=== PATIENT | male | born 1955 | race Hispanic/Latino ===

== ENCOUNTER 2016-03-16 05:42 | Inpatient (IN) | payer MEDICAID, MEDICARE ==
[2016-03-16] MEDS ORDERED: TYLENOL PO ONE ×2 (06:17→06:18)
[2016-03-16 06:50] LABS: Basophils % (Auto) 0.6 % (0.0-1.8); Hemoglobin 11.7 gm/dl (11.8-15.2); Mean Corpuscular HGB Conc 34 % (32-34); Mean Corpuscular Hemoglobin 27 pg (28-32); Mean Corpuscular Volume 79 fl (84-94); Platelet Count 195 K/mm3 (140-440); Red Blood Count 4.42 M/mm3 (3.65-5.03); Red Cell Distribution Width 14.5 % (13.2-15.2); White Blood Count 10.3 K/mm3 (4.5-11.0)
--- NOTE | 2016-03-16 06:57 | Emergency Department Report ---
HPI - General Chief Complaint: Adult Asthma Time Seen by Provider: 03/16/16 06:51 ED Past Medical Hx - Past Medical History Previous Medical History?: Yes Hx Hypertension: Yes Hx CVA: Yes (right sided weakness) Hx Heart Attack/AMI: Yes (5 stents) Hx Diabetes: Yes Hx Psychiatric Treatment: Yes (anxiety) Hx Asthma: No - Surgical History Past Surgical History?: Yes Additional Surgical History: right elbow / knee / 5 heart stents - Social History Smoking Status: Current Every Day Smoker Substance Use Type: Alcohol, Prescribed - Medications Home Medications: Home Medications Medication Instructions Recorded Confirmed Last Taken Type Clopidogrel Bisulfate [Plavix] 75 mg PO DAILY 03/11/14 03/11/14 03/10/14 History 1 Insulin NPH Hum/Reg Insulin Hm 20 unit SQ AMHY 03/11/14 03/11/14 03/10/14 History [HumuLIN 70-30 Vial] 1 Metoprolol [Lopressor TAB] 50 mg PO DAILY 03/11/14 03/11/14 03/10/14 History 1 Pantoprazole [Protonix] 40 mg PO QDAY #20 tablet. 03/11/14 Unknown Rx metFORMIN XR [Glucophage XR] 1,000 mg PO BID 03/11/14 03/11/14 03/10/14 History 1 ED Review of Systems ROS: Stated complaint: HARSHA Other details as noted in HPI Physical Exam - Physical Exam Vital Signs: Vital Signs 03/16/16 03/16/16 03/16/16 05:54 06:22 06:26 Temperature 103.1 F H Pulse Rate 123 H Respiratory 35 H 30 H 30 H Rate Blood Pressure 179/94 Blood Pressure 179/94 [Left] O2 Sat by Pulse 94 96 Oximetry ED Course Vital Signs 03/16/16 03/16/16 03/16/16 05:54 06:22 06:26 Temperature 103.1 F H Pulse Rate 123 H Respiratory 35 H 30 H 30 H Rate Blood Pressure 179/94 Blood Pressure 179/94 [Left] O2 Sat by Pulse 94 96 Oximetry ED Medical Decision Making - Lab Data Result diagrams: 03/16/16 06:32 Critical care attestation.: If time is entered above; I have spent that time in minutes in the direct care of this critically ill patient, excluding procedure time. ED Disposition Condition: Stable
[2016-03-16 07:00] LABS: BUN/Creatinine Ratio 9.47; Chloride 100.9 mmol/L (98-107); Potassium 3.7 mmol/L (3.6-5.0)
[2016-03-16] MEDS ORDERED: PROVENTIL IH ONE (07:00)
[2016-03-16] MEDS ORDERED: LASIX IV ONE (07:00)
[2016-03-16] MEDS ORDERED: ATROVENT IH ONE (07:01)
[2016-03-16] MEDS ORDERED: ROCEPHIN/NS 1 GM/50 ML 50 ML IV ONE (07:02)
--- NOTE | 2016-03-16 07:11 | Emergency Department Report ---
HPI - General Chief Complaint: Dyspnea/Respdistress Time Seen by Provider: 03/16/16 06:51 - HPI HPI: Chief complaint: Shortness of breath, fever, cough and weakness HPI: Patient is a 61-year-old male with a history of coronary artery disease, hypertension, diabetes, stroke status post cardiac stent who woke this morning with a dry cough, fever and generalized malaise. Patient states he does not get a flu shot and does not know that he's been around anyone with the flu. Patient denies history of congestive heart failure but states his feet and been swollen for the last week. Mode of arrival: [EMS] Source: [Patient] [old chart] Began: On awakening this morning Duration: Today Context: See above Quality: Patient denies chest pain Severity: 0 out of 10 Improved with: Nothing Worsened with: Nothing Associated signs and symptoms: No nausea vomiting or diarrhea. ED Past Medical Hx - Past Medical History Previous Medical History?: Yes Hx Hypertension: Yes Hx CVA: Yes (right sided weakness) Hx Heart Attack/AMI: Yes (5 stents) Hx Diabetes: Yes Hx GERD: Yes Hx Psychiatric Treatment: Yes (anxiety) Hx Asthma: No - Surgical History Past Surgical History?: Yes Additional Surgical History: right elbow / knee / 5 heart stents - Social History Smoking Status: Current Every Day Smoker Substance Use Type: Alcohol, Prescribed - Medications Home Medications: Home Medications Medication Instructions Recorded Confirmed Last Taken Type Clopidogrel Bisulfate [Plavix] 75 mg PO DAILY 03/11/14 03/11/14 03/10/14 History 1 Insulin NPH Hum/Reg Insulin Hm 20 unit SQ AMHY 03/11/14 03/11/14 03/10/14 History [HumuLIN 70-30 Vial] 1 Metoprolol [Lopressor TAB] 50 mg PO DAILY 03/11/14 03/11/14 03/10/14 History 1 Pantoprazole [Protonix] 40 mg PO QDAY #20 tablet. 03/11/14 Unknown Rx metFORMIN XR [Glucophage XR] 1,000 mg PO BID 03/11/14 03/11/14 03/10/14 History 1 ED Review of Systems ROS: Stated complaint: HARSHA Other details as noted in HPI ROS Constitutional: fever ENT: No uri symptoms Cardiovascular: No chest pain Respiratory: See HPI GI: No nausea vomiting or diarrhea : No dysuria frequency or urgency, Skin: No rash Neuro: Mild Right hemiparesis Psych: No depression Delfino/lymph: One set pedal edema Physical Exam - Physical Exam Vital Signs: Vital Signs 03/16/16 03/16/16 03/16/16 05:46 05:54 06:00 Temperature 103.1 F H Pulse Rate 123 H 123 H 121 H Respiratory 28 H 35 H 38 H Rate Blood Pressure 179/94 172/92 Blood Pressure 179/94 [Left] O2 Sat by Pulse 94 94 94 Oximetry 03/16/16 03/16/16 06:22 06:26 Temperature Pulse Rate Respiratory 30 H 30 H Rate Blood Pressure Blood Pressure [Left] O2 Sat by Pulse 96 Oximetry Physical Exam: GENERAL: The patient is well-developed well-nourished . Patient is sleepy and falls asleep intermittently during the exam and has to be reawakened. HEENT: Normocephalic. Atraumatic. Extraocular motions are intact. Patient has moist mucous membranes. NECK: Supple. No meningitic signs are noted. There is no adenopathy noted. CHEST/LUNGS: Bibasilar wheezing and Rales. There is no respiratory distress noted. HEART/CARDIOVASCULAR: Regular. There is tachycardia. There is no gallop rub or murmur. ABDOMEN: Abdomen is soft, nontender. Patient has normal bowel sounds. There is no abdominal distention. SKIN: There is no rash. There is no edema. There is no diaphoresis. NEURO: The patient is sleepy but easily awakened and oriented. The patient is cooperative. The patient has normal speech. MUSCULOSKELETAL: There is no tenderness or deformity. There is no limitation range of motion. There is no evidence of acute injury. ED Course Vital Signs 03/16/16 03/16/16 03/16/16 05:46 05:54 06:00 Temperature 103.1 F H Pulse Rate 123 H 123 H 121 H Respiratory 28 H 35 H 38 H Rate Blood Pressure 179/94 172/92 Blood Pressure 179/94 [Left] O2 Sat by Pulse 94 94 94 Oximetry 03/16/16 03/16/16 06:22 06:26 Temperature Pulse Rate Respiratory 30 H 30 H Rate Blood Pressure Blood Pressure [Left] O2 Sat by Pulse 96 Oximetry - Reevaluation(s) Reevaluation #1: 03/16/16 07:12 Patient given Tylenol, Lasix 20 mg IV, nebulizer treatment and 1 g of IV Rocephin. Chest x-ray shows increased pulmonary vasculature and no definite infiltrate is noted. Patient will be admitted to rule out new onset heart failure. ED Medical Decision Making - Lab Data Result diagrams: 03/16/16 06:32 03/16/16 06:32 - EKG Data -: EKG Interpreted by Me EKG shows normal: sinus rhythm Rate: tachycardia (122) - EKG Data When compared to previous EKG there are: previous EKG unavailable Interpretation: other (left anterior fascicular block) Critical care attestation.: If time is entered above; I have spent that time in minutes in the direct care of this critically ill patient, excluding procedure time. ED Disposition Clinical Impression: Congestive heart failure, Fever, Reactive airway disease, Renal insufficiency Disposition: OP ADMITTED IP TO THIS HOSP Is pt being admited?: Yes Does the pt Need Aspirin: Yes Condition: Fair Time of Disposition: 07:48 (admit to the hospitalist)
[2016-03-16] MEDS ORDERED: D50W (25GM) IV PRN (07:34)
[2016-03-16] MEDS ORDERED: DULCOLAX PR PRN (07:34)
--- NOTE | 2016-03-16 07:34 | History and Physical Report ---
History of Present Illness Chief complaint: fever History of present illness: 61 w pmh of htn, dm, cva, cad sp stent who presents with one day of dry cough, fever, malaise. Denies sick contacts, feels very poorly, feels very weak. Denies sick contacts, also complaining of bipedal edema x 1 week, denies hx of CHF. Did not take flu shot this year Past History Past Medical History: acute AL, CAD, diabetes, hypertension. denies: heart failure, renal failure Past Surgical History: Other (R elbow surgery, knee sx, 5 stents) Social history: smoking (current every day) Family history: no significant family history Medications and Allergies Allergies Allergy/AdvReac Type Severity Reaction Status Date / Time Penicillins Allergy Unknown Verified 03/11/14 04:53 Home Medications Medication Instructions Recorded Confirmed Last Taken Type Clopidogrel Bisulfate [Plavix] 75 mg PO DAILY 03/11/14 03/16/16 03/10/14 History 1 Insulin NPH Hum/Reg Insulin Hm 20 unit SQ AMHY 03/11/14 03/16/16 03/10/14 History [HumuLIN 70-30 Vial] 1 Metoprolol [Lopressor TAB] 50 mg PO DAILY 03/11/14 03/16/16 03/10/14 History 1 Pantoprazole [Protonix] 40 mg PO QDAY #20 tablet. 03/11/14 03/16/16 Unknown Rx metFORMIN XR [Glucophage XR] 1,000 mg PO BID 03/11/14 03/16/16 03/10/14 History 1 Active Meds: Active Medications Ceftriaxone Sodium (Rocephin/Ns 1 Gm/50 Ml) 50 mls @ 100 mls/hr IV ONCE ONE Stop: 03/16/16 07:31 Last Admin: 03/16/16 07:24 Dose: 100 mls/hr Review of Systems All systems: negative Constitutional: fever, malaise, other (body aches) Cardiovascular: leg edema Respiratory: cough Exam - Constitutional Vitals: Temp Pulse Resp BP Pulse Ox 103.1 F H 121 H 30 H 172/92 96 03/16/16 05:54 03/16/16 06:00 03/16/16 06:26 03/16/16 06:00 03/16/16 06:26 General appearance: Present: other (toxic appearance) - EENT Eyes: Present: PERRL ENT: hearing intact, clear oral mucosa - Neck Neck: Present: supple, normal ROM - Respiratory Respiratory effort: normal Respiratory: bilateral: CTA - Cardiovascular Heart Sounds: Present: S1 & S2. Absent: rub, click - Extremities Extremities: pulses symmetrical, No edema Peripheral Pulses: within normal limits - Abdominal General gastrointestinal: Present: soft, non-tender, non-distended, normal bowel sounds Male genitourinary: Present: normal - Integumentary Integumentary: Present: clear, warm, dry - Musculoskeletal Musculoskeletal: gait normal, strength equal bilaterally - Psychiatric Psychiatric: appropriate mood/affect, intact judgment & insight - Neurologic Neurologic: CNII-XII intact, moves all extremities Results - Labs CBC & Chem 7: 03/16/16 06:32 03/16/16 06:32 Labs: Laboratory Last Values WBC 10.3 K/mm3 (4.5-11.0) 03/16/16 06:32 RBC 4.42 M/mm3 (3.65-5.03) 03/16/16 06:32 Hgb 11.7 gm/dl (11.8-15.2) L 03/16/16 06:32 Hct 35.0 % (35.5-45.6) L 03/16/16 06:32 MCV 79 fl (84-94) L 03/16/16 06:32 MCH 27 pg (28-32) L 03/16/16 06:32 MCHC 34 % (32-34) 03/16/16 06:32 RDW 14.5 % (13.2-15.2) 03/16/16 06:32 Plt Count 195 K/mm3 (140-440) 03/16/16 06:32 Lymph % (Auto) 5.4 % (13.4-35.0) L 03/16/16 06:32 [place] % (Auto) 6.1 % (0.0-7.3) 03/16/16 06:32 Eos % (Auto) 1.0 % (0.0-4.3) 03/16/16 06:32 Baso % (Auto) 0.6 % (0.0-1.8) 03/16/16 06:32 Lymph # 0.6 K/mm3 (1.2-5.4) L 03/16/16 06:32 [place] # 0.6 K/mm3 (0.0-0.8) 03/16/16 06:32 Eos # 0.1 K/mm3 (0.0-0.4) 03/16/16 06:32 Baso # 0.1 K/mm3 (0.0-0.1) 03/16/16 06:32 Seg Neutrophils % 86.9 % (40.0-70.0) H 03/16/16 06:32 Seg Neutrophils # 8.9 K/mm3 (1.8-7.7) H 03/16/16 06:32 Sodium 137 mmol/L (137-145) 03/16/16 06:32 Potassium 3.7 mmol/L (3.6-5.0) 03/16/16 06:32 Chloride 100.9 mmol/L (98-107) 03/16/16 06:32 Carbon Dioxide 21 mmol/L (22-30) L 03/16/16 06:32 Anion Gap 19 mmol/L 03/16/16 06:32 BUN 18 mg/dL (9-20) 03/16/16 06:32 Creatinine 1.9 mg/dL (0.8-1.5) H 03/16/16 06:32 Estimated GFR 36 ml/min 03/16/16 06:32 BUN/Creatinine Ratio 9.47 % 03/16/16 06:32 Glucose 218 mg/dL (75-100) H 03/16/16 06:32 Calcium 8.0 mg/dL (8.4-10.2) L 03/16/16 06:32 NT-Pro-B Natriuret Pep 2313 pg/mL (0-900) H 03/16/16 06:32 - Imaging and Cardiology Chest x-ray: image reviewed (no infiltrate seen) Assessment and Plan Assessment and plan: 1. Presumptive Influenza infection fup flu testing start tamiflu, IVF, supportive meds, cough suppresant prn 2. CAD continue home meds 3. Nicotine abuse counseled, nicotine patches offered 4. Bipedal edema -obtain echo, and Duplex venous study to r/o CHF vs venous stasis 5. UCHE-likely due to vasomotor nephropathy -IVfluids judiciously, avoid nephrotoxic agents 6. HTN-accelerated resume home meds and prn hydralazine Plan of care discussed with patient/family: Yes
[2016-03-16 07:35] LABS: Creatine Kinase 125 units/L (55-170)
[2016-03-16 07:39] LABS: Creatine Kinase MB < 1.0 ng/mL (0.0-4.0)
[2016-03-16] MEDS ORDERED: APRESOLINE IV PRN (07:39)
[2016-03-16] MEDS ORDERED: ASPIRIN PO ONE (07:55)
[2016-03-16] MEDS ORDERED: NACL 0.9% 1000 ML 1,000 ML IV SCH (08:00)
[2016-03-16] MEDS ORDERED: ZOFRAN IV PRN (08:00)
[2016-03-16] MEDS ORDERED: MILK OF MAGNESIA PO PRN (08:00)
[2016-03-16 09:00] LABS: Urine Drugs of Abuse Note Disclamer
[2016-03-16] MEDS ORDERED: ROBITUSSIN AC PO PRN (09:00)
[2016-03-16 09:46] LABS: Bilirubin,Urine NEG (Negative); Blood,Urine SM (Negative); Ketones,Urine NEG (Negative); Leukocyte Esterase,Urine NEG (Negative); Mucus,Urine FEW /HPF; Nitrite,Urine NEG (Negative); Urobilinogen,Urine < 2.0 mg/dL (<2.0)
[2016-03-16 09:48] LABS: Protein,Urine >500 mg/dL (Negative)
--- NOTE | 2016-03-16 09:58 | XRay Report ---
AP CHEST :03/16/16 05:42:00 CLINICAL: Difficulty breathing. COMPARISON:None. FINDINGS: The heart is normal size. However, central vascular congestion and extensive bilateral reticular interstitial opacities suggestive of multilobar pulmonary edema.No pulmonary consolidation. No tubes or lines. IMPRESSION: CHF with interstitial pulmonary edema versus multilobar interstitial pneumonia..
[2016-03-16] MEDS ORDERED: PROTONIX PO SCH (10:00)
[2016-03-16] MEDS ORDERED: ASPIRIN ONE (10:31)
[2016-03-16] MEDS: PLAVIX PO SCH (10:40)
[2016-03-16] MEDS: PROTONIX PO SCH (10:42)
[2016-03-16] MEDS: LOVENOX SUB-Q SCH (10:45)
[2016-03-16] MEDS: HABITROL TD SCH (10:59)
[2016-03-16] MEDS: LOPRESSOR PO SCH (10:59)
[2016-03-16] MEDS: NOVOLOG SUB-Q SCH ×2 (12:00→17:46)
[2016-03-16] MEDS: TYLENOL PO PRN (18:15)
[2016-03-16] MEDS ORDERED: XANAX PO PRN (23:46)
[2016-03-17] MEDS: XANAX PO PRN ×3 (00:32→21:30)
[2016-03-17] MEDS: TYLENOL PO PRN ×2 (05:03→11:17)
[2016-03-17] MEDS: TESSALON PERLES PO SCH ×3 (05:03→21:31)
[2016-03-17] MEDS: NOVOLOG SUB-Q SCH ×3 (08:15→17:42)
[2016-03-17 08:19] LABS: Calcium 7.5 mg/dL (8.4-10.2); Chloride 99.5 mmol/L (98-107); Potassium 3.3 mmol/L (3.6-5.0)
--- NOTE | 2016-03-17 09:16 | Progress Note ---
Assessment and Plan Assessment and plan: 61 w pmh of htn, dm, cva, cad sp stent who presents with one day of dry cough, fever, malaise. Denies sick contacts, feels very poorly, feels very weak. Denies sick contacts, also complaining of bipedal edema x 1 week, denies hx of CHF. Did not take flu shot this year. Patient is poor historian and unable to give any information about his health. * Acute CHF Exacerbation probably systolic * Patient states that he has a hx of CHF but dose not what type, was recently at [facility], will request records * No edema on my exam, patient supine with no shortness of breath except for cough * Consult cardiology, restart lasix but PO will obtain Nephrology consultation in the setting of UCHE * Await Echo report * Acute Kidney Injury possible due to Vasomotor Nephropathy * patient states that he is suppose to follow with nephrology, unsure what the baseline is. await requested records * Consult Nephrology * Check US renal, Avoid nephrotoxic meds * Sepsis r/o Pneumonia vs acute bronchitis * Unsure if superimposed pneumonia. Patient with Tmax 102.5 * Start Levaquin, as patient has allergy to PCN. check lactic acid. Bcx reviewed, no growth * D/C tamiflu * Cough * non productive. * Causing chest pain- musculoskeltal * Musculoskeletal chest pain * related to the cough, await cardiology input * Hypertensive Urgency * continue BB, Hydralazine, NO ACEI/ARB due to renal function * Anticipate improvement with addition of lasix, otherwise may add other agents * Sinus tachycardia * Likely secondary to cough on underline and infectious process. * Metabolic Acidosis * likely due to renal function abnormality * Hypokalemia likely due to renal dysfunction * replace * DM * controlled, continue current therapy * Nicotine abuse * Counselling provided on quit methods and risk of continued use, patient verablized understanding * Bilateral pedal edema * await u/s lower ext * CAD * continue asa, home meds * BPH * Patient state he has some prostrate problems in the past, and has been on abx but again unsure of his hx. * DVT and GI prophylaxis The high probability of a clinically significant, sudden or life threatening deterioration of the [cardiac, infectious, pulmonary] system(s) required my full and direct attention, intervention and personal management. The aggregate critical care time was [45] minutes. This time is in addition to time spent performing reported procedures but includes the following: [x] Data Review and interpretation [x] Patient assessment and monitoring of vital signs [x] Documentation [x] Medication orders and management History Interval history: Follow-up cough with shortness of breath Patient seen and examined this morning in no acute distress, reports fever and persistent nonproductive cough also chest wall pain. Rates the pain at 3/10 in intensity only associated with cough no radiation Denies any nausea, vomiting, diarrhea No fever noted blood pressure controlled No adverse events reported to me by nursing staff Hospitalist Physical - Physical exam Narrative exam: VITAL SIGNS: Reviewed. GENERAL: The patient appeared well nourished and normally developed. Vital signs as documented. HEAD: No signs of head trauma. EYES: Pupils are equal. Extraocular motions intact. EARS: Hearing grossly intact. MOUTH: Oropharynx is normal. NECK: No adenopathy, no JVD. CHEST: Chest with crackles breath sounds bilaterally. No wheezes. CARDIAC: Regular rate and rhythm. S1 and S2, without murmurs, gallops, or rubs. VASCULAR: No Edema. Peripheral pulses normal and equal in all extremities. ABDOMEN: Soft, without detectable tenderness. No sign of distention. No rebound or guarding, and no masses palpated. Bowel Sounds normal. MUSCULOSKELETAL: Good range of motion of all major joints. Extremities without clubbing, cyanosis or edema. NEUROLOGIC EXAM: Alert and oriented x 3. No focal sensory or strength deficits. Speech normal. Follows commands. PSYCHIATRIC: Mood normal. SKIN: Warm to touch, No rash or lesions. - Constitutional Vitals: Temp Pulse Resp BP Pulse Ox 102.5 F H 101 H 22 189/90 97 03/17/16 05:12 03/17/16 05:12 03/17/16 05:12 03/17/16 05:12 03/17/16 09:08 General appearance: Present: other (toxic appearance) Results - Labs CBC & Chem 7: 03/16/16 06:32 03/17/16 07:08 Labs: Laboratory Last Values WBC 10.3 K/mm3 (4.5-11.0) 03/16/16 06:32 RBC 4.42 M/mm3 (3.65-5.03) 03/16/16 06:32 Hgb 11.7 gm/dl (11.8-15.2) L 03/16/16 06:32 Hct 35.0 % (35.5-45.6) L 03/16/16 06:32 MCV 79 fl (84-94) L 03/16/16 06:32 MCH 27 pg (28-32) L 03/16/16 06:32 MCHC 34 % (32-34) 03/16/16 06:32 RDW 14.5 % (13.2-15.2) 03/16/16 06:32 Plt Count 195 K/mm3 (140-440) 03/16/16 06:32 Lymph % (Auto) 5.4 % (13.4-35.0) L 03/16/16 06:32 [place] % (Auto) 6.1 % (0.0-7.3) 03/16/16 06:32 Eos % (Auto) 1.0 % (0.0-4.3) 03/16/16 06:32 Baso % (Auto) 0.6 % (0.0-1.8) 03/16/16 06:32 Lymph # 0.6 K/mm3 (1.2-5.4) L 03/16/16 06:32 [place] # 0.6 K/mm3 (0.0-0.8) 03/16/16 06:32 Eos # 0.1 K/mm3 (0.0-0.4) 03/16/16 06:32 Baso # 0.1 K/mm3 (0.0-0.1) 03/16/16 06:32 Seg Neutrophils % 86.9 % (40.0-70.0) H 03/16/16 06:32 Seg Neutrophils # 8.9 K/mm3 (1.8-7.7) H 03/16/16 06:32 Sodium 136 mmol/L (137-145) L 03/17/16 07:08 Potassium 3.3 mmol/L (3.6-5.0) L 03/17/16 07:08 Chloride 99.5 mmol/L (98-107) 03/17/16 07:08 Carbon Dioxide 21 mmol/L (22-30) L 03/17/16 07:08 Anion Gap 19 mmol/L 03/17/16 07:08 BUN 18 mg/dL (9-20) 03/17/16 07:08 Creatinine 2.0 mg/dL (0.8-1.5) H 03/17/16 07:08 Estimated GFR 34 ml/min 03/17/16 07:08 BUN/Creatinine Ratio 9.00 % 03/17/16 07:08 Glucose 202 mg/dL (75-100) H 03/17/16 07:08 POC Glucose 191 (70-105) H 03/17/16 05:56 Calcium 7.5 mg/dL (8.4-10.2) L 03/17/16 07:08 Total Creatine Kinase 125 units/L (55-170) 03/16/16 06:32 CK-MB (CK-2) < 1.0 ng/mL (0.0-4.0) 03/16/16 06:32 CK-MB (CK-2) Rel Index 0.8 (0-4) 03/16/16 06:32 Troponin T < 0.010 ng/mL (0.00-0.029) 03/16/16 06:32 NT-Pro-B Natriuret Pep 2313 pg/mL (0-900) H 03/16/16 06:32 Urine Color Yellow (Yellow) 03/16/16 08:40 Urine Turbidity Clear (Clear) 03/16/16 08:40 Urine pH 5.0 (5.0-7.0) 03/16/16 08:40 Ur Specific [place] 1.013 (1.003-1.030) 03/16/16 08:40 Urine Protein >500 mg/dL (Negative) 03/16/16 08:40 Urine Glucose (UA) >=500 mg/dL (Negative) 03/16/16 08:40 Urine Ketones Neg mg/dL (Negative) 03/16/16 08:40 Urine Blood Sm (Negative) 03/16/16 08:40 Urine Nitrite Neg (Negative) 03/16/16 08:40 Urine Bilirubin Neg (Negative) 03/16/16 08:40 Urine Urobilinogen < 2.0 mg/dL (<2.0) 03/16/16 08:40 Ur Leukocyte Esterase Neg (Negative) 03/16/16 08:40 Urine WBC (Auto) 2.0 /HPF (0.0-6.0) 03/16/16 08:40 Urine RBC (Auto) 3.0 /HPF (0.0-6.0) 03/16/16 08:40 U Epithel Cells (Auto) < 1.0 /HPF (0-13.0) 03/16/16 08:40 Amorphous Crystals Few 03/16/16 08:40 Hyaline Casts 1 /LPF 03/16/16 08:40 Urine Mucus Few /HPF 03/16/16 08:40 Urine Opiates Screen Presumptive negative 03/16/16 08:40 Urine Methadone Screen Presumptive negative 03/16/16 08:40 Ur Barbiturates Screen Presumptive negative 03/16/16 08:40 Ur Phencyclidine Scrn Presumptive negative 03/16/16 08:40 Ur Amphetamines Screen Presumptive negative 03/16/16 08:40 U Benzodiazepines Scrn Presumptive positive 03/16/16 08:40 Urine Cocaine Screen Presumptive negative 03/16/16 08:40 U Marijuana (THC) Screen Presumptive negative 03/16/16 08:40 Drugs of Abuse Note Disclamer 03/16/16 08:40 - Imaging and Cardiology EKG: image reviewed (personally reviewed shows sinus tachycardia with a rate of 122) Chest x-ray: image reviewed (shows bilateral congestion)
[2016-03-17] MEDS: PLAVIX PO SCH (09:30)
[2016-03-17] MEDS: LOVENOX SUB-Q SCH (09:30)
[2016-03-17] MEDS: HABITROL TD SCH (09:30)
[2016-03-17] MEDS: LOPRESSOR PO SCH (09:31)
[2016-03-17] MEDS: PROTONIX PO SCH (09:54)
[2016-03-17] MEDS ORDERED: LASIX IV SCH (10:00)
[2016-03-17] MEDS ORDERED: LEVAQUIN 500MG/100ML 100 ML IV SCH (10:00)
[2016-03-17] MEDS ORDERED: K-DUR PO ONE (10:00)
--- NOTE | 2016-03-17 10:26 | Consultation ---
History of Present Illness Consult date: 03/17/16 Consult reason: congestive heart failure History of present illness: This is a 61 year old -[place]/ male who presents with episode of weakness and generalized shaking suddenly at night. He denies any fever or chest pain but states he was weak and could not get out of bed and his girl friend had to assist him. He was brought to the emergency room where his chest x-ray showed interstitial edema and his serum BNP was elevated patient was subsequently admitted for further management and treatment. Past History Past Medical History: acute OH, CAD, diabetes, hypertension. denies: heart failure, renal failure Past Surgical History: No surgical history, Other (R elbow surgery, knee sx, 5 stents) Social history: smoking (current every day) Family history: no significant family history Medications and Allergies Allergies Allergy/AdvReac Type Severity Reaction Status Date / Time Penicillins Allergy Unknown Verified 03/11/14 04:53 Home Medications Medication Instructions Recorded Confirmed Last Taken Type Clopidogrel Bisulfate [Plavix] 75 mg PO DAILY 03/11/14 03/16/16 03/10/14 History 1 Insulin NPH Hum/Reg Insulin Hm 20 unit SQ AMHY 03/11/14 03/16/16 03/10/14 History [HumuLIN 70-30 Vial] 1 Metoprolol [Lopressor TAB] 50 mg PO DAILY 03/11/14 03/16/16 03/10/14 History 1 Pantoprazole [Protonix] 40 mg PO QDAY #20 tablet. 03/11/14 03/16/16 Unknown Rx metFORMIN XR [Glucophage XR] 1,000 mg PO BID 03/11/14 03/16/16 03/10/14 History 1 ALPRAZolam [Xanax TAB] 2 mg PO BID PRN 03/16/16 03/16/16 Unknown History Active Meds: Active Medications Acetaminophen (Tylenol) 650 mg PO Q4H PRN PRN Reason: Pain MILD(1-3)/Fever >100.5/SHAH Last Admin: 03/17/16 05:03 Dose: 650 mg Alprazolam (Xanax) 2 mg PO BID PRN PRN Reason: Anxiety Last Admin: 03/17/16 00:34 Dose: 1 mg Benzonatate (Tessalon Perles) 100 mg PO Q8HR [facility] Last Admin: 03/17/16 05:03 Dose: 100 mg Bisacodyl (Dulcolax) 10 mg [place] QDAY PRN PRN Reason: Constipation unrelieved by MOM Clopidogrel Bisulfate (Plavix) 75 mg PO DAILY [facility] Last Admin: 03/17/16 09:30 Dose: 75 mg Dextrose (D50w (25gm)) 50 ml IV PRN PRN PRN Reason: Hypoglycemia Enoxaparin Sodium (Lovenox) 40 mg SUB-Q QDAY [facility] Last Admin: 03/17/16 09:30 Dose: 40 mg Furosemide (Lasix) 40 mg PO QDAY [facility] Hydralazine HCl (Apresoline) 10 mg IV Q4HR PRN PRN Reason: BP >160/100 Last Admin: 03/17/16 05:10 Dose: 10 mg Sodium Chloride (Nacl 0.9% 1000 Ml) 1,000 mls @ 75 mls/hr IV DIRECT [facility] Last Admin: 03/16/16 22:08 Dose: 75 mls/hr Levofloxacin/Dextrose (Levaquin 500mg/100ml) 100 mls @ 100 mls/hr IV Q24HR [facility] PRN Reason: Protocol Last Admin: 03/17/16 10:01 Dose: 100 mls/hr Insulin Aspart (Novolog) 0 units SUB-Q AC [facility] PRN Reason: Protocol Last Admin: 03/17/16 08:15 Dose: 1 units Insulin Human Isoph/Insulin Regular (Novolin 70/30) 10 unit SUB-Q QAMDIAB [facility] Last Admin: 03/17/16 08:17 Dose: 10 unit Magnesium Hydroxide (Milk Of Magnesia) 30 ml PO Q4H PRN PRN Reason: Constipation Metoprolol Tartrate (Lopressor) 50 mg PO DAILY [facility] Last Admin: 03/17/16 09:31 Dose: 50 mg Nicotine (Habitrol) 14 mg TD QDAY [facility] Last Admin: 03/17/16 09:30 Dose: Not Given Ondansetron HCl (Zofran) 4 mg IV Q8H PRN PRN Reason: N/V unrelieved by Reglan Pantoprazole Sodium (Protonix) 40 mg PO DAILY [facility] Last Admin: 03/17/16 09:54 Dose: 40 mg Pseudoephedrine/Acetam/Chlorphenir (Robitussin Ac) 10 ml PO Q4H PRN PRN Reason: Cough Last Admin: 03/16/16 22:08 Dose: 10 ml Review of Systems Constitutional: weight loss, fatigue, weakness, no weight gain Ears, nose, mouth and throat: no ear pain, no ear discharge Cardiovascular: chest pain, orthopnea, shortness of breath, dyspnea on exertion Respiratory: cough, dyspnea on exertion Gastrointestinal: no abdominal pain, no vomiting Genitourinary Male: no dysuria, no hematuria, no urinary frequency Musculoskeletal: no neck stiffness, no neck pain Integumentary: no rash, no pruritis Neurological: no weakness, no parathesias, no headaches Endocrine: no cold intolerance, no heat intolerance, no polyphagia Hematologic/Lymphatic: no easy bruising, no easy bleeding, no lymphadenopathy Allergic/Immunologic: no urticaria, no wheezing Physical Examination Vital Signs Pulse Resp Pulse Ox 123 H 28 H 94 03/16/16 05:46 03/16/16 05:46 03/16/16 05:46 General appearance: no acute distress, well-nourished HEENT: Positive: PERRL, Mucus Membranes Moist Neck: Positive: neck supple, trachea midline. Negative: JVD/HJR Cardiac: Positive: Regular Rate, S1/S2, S3, PMI, Dilated, Laterally Displaced Lungs: Positive: clear to auscultation, Normal Breath Sounds Neuro: Positive: Grossly Intact Abdomen: Positive: Soft, Active Bowel Sounds. Negative: Tender, Distended Extremities: Absent: edema Results 03/16/16 06:32 03/17/16 07:08 Comprehensive Metabolic Panel 03/17/16 Range/Units 07:08 Sodium 136 L (137-145) mmol/L Potassium 3.3 L (3.6-5.0) mmol/L Chloride 99.5 (98-107) mmol/L Carbon Dioxide 21 L (22-30) mmol/L BUN 18 (9-20) mg/dL Creatinine 2.0 H (0.8-1.5) mg/dL Glucose 202 H (75-100) mg/dL Calcium 7.5 L (8.4-10.2) mg/dL EKG interpretations - Telemetry EKG Rhythm: Sinus Rhythm - EKG Sinus rhythms and dysrhythmias: sinus rhythm Assessment and Plan 1. Acute decompensated systolic heart failure likely precipitated by fluid overload from chronic Renal failure. 2. Chronic kidney disease stage III 3. Type 2 diabetes mellitus 4. Essential hypertension 5. Coronary artery disease status post PCI with stent placement Plan. Patient is currently stable will require some diuresis and for his fluid overload. Resume cardiac medication. He was recently at [facility] a couple of weeks ago, records from that admission will be obtained. He follows with Dr. Kaplan with the [facility]
[2016-03-17 13:17] LABS: Basophils % (Auto) 0.7 % (0.0-1.8); Eosinophils % (Auto) 0.5 % (0.0-4.3); Hematocrit 30.7 % (35.5-45.6); Hemoglobin 10.6 gm/dl (11.8-15.2); Mean Corpuscular HGB Conc 35 % (32-34); Mean Corpuscular Hemoglobin 27 pg (28-32); Mean Corpuscular Volume 79 fl (84-94); Platelet Count 155 K/mm3 (140-440); Red Cell Distribution Width 14.6 % (13.2-15.2); White Blood Count 7.2 K/mm3 (4.5-11.0)
--- NOTE | 2016-03-17 13:52 | Consultation ---
History of Present Illness - Reason for Consult Consult date: 03/17/16 acute renal failure, chronic renal failure Requesting physician: JOANN DIAZ - History of Present Illness This is a 61 yo M with PMHx of hypertension, Type 2 DM, CAD s/p PR and CVA in the past, who is admitted on the 03/16/16 after presenting with generalized fatigue along with shortness of breath, productive cough, fever, generalized malaise. Patient also reports bilateral pedal edema for 1 week. in ER patient was found to be febrile with temp >100F along with CXR showing CHF with b/l interstitial pulmonary edema vs multilobar interstitial pneumonia. Pt is admitted for IV diuresis and IV ABX treatment. Pt was also found to have abnormal kidney function with BUN/Cr at 18/2mg/dl. renal consult is requested for management of UCHE vs CKD. patient states that he was recently hospitalized at [facility] for difficulty swallowing and had GI evaluation incl. EGD. patient was told to have abnormal kidney function at that time and was instructed to see a handhole machine operator. Pt denies recent NSAIDs use or IV contrast exposure. Past History Past Medical History: acute PR, CAD, diabetes, hypertension, renal failure. denies: heart failure Past Surgical History: No surgical history, Other (R elbow surgery, knee sx, 5 stents) Social history: smoking (current every day) Family history: no significant family history Medications and Allergies Allergies Allergy/AdvReac Type Severity Reaction Status Date / Time Penicillins Allergy Unknown Verified 03/11/14 04:53 Home Medications Medication Instructions Recorded Confirmed Last Taken Type Clopidogrel Bisulfate [Plavix] 75 mg PO DAILY 03/11/14 03/16/16 03/10/14 History 1 Insulin NPH Hum/Reg Insulin Hm 20 unit SQ AMHY 03/11/14 03/16/16 03/10/14 History [HumuLIN 70-30 Vial] 1 Metoprolol [Lopressor TAB] 50 mg PO DAILY 03/11/14 03/16/16 03/10/14 History 1 Pantoprazole [Protonix] 40 mg PO QDAY #20 tablet. 03/11/14 03/16/16 Unknown Rx metFORMIN XR [Glucophage XR] 1,000 mg PO BID 03/11/14 03/16/16 03/10/14 History 1 ALPRAZolam [Xanax TAB] 2 mg PO BID PRN 03/16/16 03/16/16 Unknown History Active Meds: Active Medications Acetaminophen (Tylenol) 650 mg PO Q4H PRN PRN Reason: Pain MILD(1-3)/Fever >100.5/SHAH Last Admin: 03/17/16 11:17 Dose: 650 mg Alprazolam (Xanax) 2 mg PO BID PRN PRN Reason: Anxiety Last Admin: 03/17/16 00:34 Dose: 1 mg Benzonatate (Tessalon Perles) 100 mg PO Q8HR [facility] Last Admin: 03/17/16 05:03 Dose: 100 mg Bisacodyl (Dulcolax) 10 mg [place] QDAY PRN PRN Reason: Constipation unrelieved by MOM Clopidogrel Bisulfate (Plavix) 75 mg PO DAILY [facility] Last Admin: 03/17/16 09:30 Dose: 75 mg Dextrose (D50w (25gm)) 50 ml IV PRN PRN PRN Reason: Hypoglycemia Enoxaparin Sodium (Lovenox) 40 mg SUB-Q QDAY [facility] Last Admin: 03/17/16 09:30 Dose: 40 mg Furosemide (Lasix) 40 mg PO QDAY [facility] Hydralazine HCl (Apresoline) 10 mg IV Q4HR PRN PRN Reason: BP >160/100 Last Admin: 03/17/16 05:10 Dose: 10 mg Levofloxacin/Dextrose (Levaquin 500mg/100ml) 100 mls @ 100 mls/hr IV Q24HR [facility] PRN Reason: Protocol Last Admin: 03/17/16 10:01 Dose: 100 mls/hr Insulin Aspart (Novolog) 0 units SUB-Q AC [facility] PRN Reason: Protocol Last Admin: 03/17/16 12:28 Dose: 1 units Insulin Human Isoph/Insulin Regular (Novolin 70/30) 10 unit SUB-Q QAMDIAB [facility] Last Admin: 03/17/16 08:17 Dose: 10 unit Magnesium Hydroxide (Milk Of Magnesia) 30 ml PO Q4H PRN PRN Reason: Constipation Metoprolol Tartrate (Lopressor) 50 mg PO DAILY [facility] Last Admin: 03/17/16 09:31 Dose: 50 mg Nicotine (Habitrol) 14 mg TD QDAY [facility] Last Admin: 03/17/16 09:30 Dose: Not Given Ondansetron HCl (Zofran) 4 mg IV Q8H PRN PRN Reason: N/V unrelieved by Reglan Pantoprazole Sodium (Protonix) 40 mg PO DAILY [facility] Last Admin: 03/17/16 09:54 Dose: 40 mg Pseudoephedrine/Acetam/Chlorphenir (Robitussin Ac) 10 ml PO Q4H PRN PRN Reason: Cough Last Admin: 03/16/16 22:08 Dose: 10 ml Review of Systems All systems: negative Constitutional: anorexia, fatigue, weakness, malaise, poor appetite Cardiovascular: orthopnea, edema, shortness of breath, dyspnea on exertion, paroxysmal nocturnal dyspnea Respiratory: cough, cough with sputum Exam - Vital Signs Vital signs: Vital Signs Pulse Resp Pulse Ox 123 H 28 H 94 03/16/16 05:46 03/16/16 05:46 03/16/16 05:46 - General Appearance General appearance: appears stated age, chronically ill, fatigue, frail EENT: ATNC, PERRL, mucous membranes moist Neck: Present: neck supple Respiratory: Decreased Breath Sounds Heart: regular, S1S2 Gastrointestinal: Present: normal, normoactive bowel sounds Integumentary: no rash, other (no pitting edema b/l LE, LUE mass/lump noted. ) Neurologic: no focal deficit, alert and oriented x3, strength 5/5, CN 3-12 intact Psychiatric: mood/affect appropriate, cooperative Results - Lab Results 03/17/16 13:05 03/17/16 07:08 Most recent lab results Calcium 7.5 mg/dL (8.4-10.2) L 03/17/16 07:08 Laboratory Tests 03/16/16 03/16/16 03/16/16 06:32 06:32 06:32 Lactic Acid Calcium 8.0 L Total Creatine Kinase 125 CK-MB (CK-2) < 1.0 CK-MB (CK-2) Rel Index 0.8 Troponin T < 0.010 NT-Pro-B Natriuret Pep 2313 H Urine Color Urine Turbidity Urine pH Ur Specific Fay Urine Protein Urine Glucose (UA) Urine Ketones Urine Blood Urine Nitrite Urine Bilirubin Urine Urobilinogen Ur Leukocyte Esterase Urine WBC (Auto) Urine RBC (Auto) U Epithel Cells (Auto) Amorphous Crystals Hyaline Casts Urine Mucus U Benzodiazepines Scrn 12/03/16/16 03/17/16 08:40 08:40 07:08 Lactic Acid Calcium 7.5 L Total Creatine Kinase CK-MB (CK-2) CK-MB (CK-2) Rel Index Troponin T NT-Pro-B Natriuret Pep Urine Color Yellow Urine Turbidity Clear Urine pH 5.0 Ur Specific Fay 1.013 Urine Protein >500 Urine Glucose (UA) >=500 Urine Ketones Neg Urine Blood Sm Urine Nitrite Neg Urine Bilirubin Neg Urine Urobilinogen < 2.0 Ur Leukocyte Esterase Neg Urine WBC (Auto) 2.0 Urine RBC (Auto) 3.0 U Epithel Cells (Auto) < 1.0 Amorphous Crystals Few Hyaline Casts 1 Urine Mucus Few U Benzodiazepines Scrn Presumptive positive 03/17/16 13:05 Lactic Acid 0.9 Calcium Total Creatine Kinase CK-MB (CK-2) CK-MB (CK-2) Rel Index Troponin T NT-Pro-B Natriuret Pep Urine Color Urine Turbidity Urine pH Ur Specific Fay Urine Protein Urine Glucose (UA) Urine Ketones Urine Blood Urine Nitrite Urine Bilirubin Urine Urobilinogen Ur Leukocyte Esterase Urine WBC (Auto) Urine RBC (Auto) U Epithel Cells (Auto) Amorphous Crystals Hyaline Casts Urine Mucus U Benzodiazepines Scrn Assessment and Plan - Patient Problems (1) Congestive heart failure Current Visit: Yes Status: Acute Plan to address problem: awaiting Echocardiogram report. continue diuresis with lasix 40mg IV daily to target net negative fluid balance of >1L/day strict I/Os, na and fluid restriction. (2) Acute kidney injury superimposed on CKD Current Visit: Yes Status: Acute Plan to address problem: possible acute cardiorenal syndrome superimposed on CKD; upon chart review at [facility] records, baseline Cr around 1.5-17mg/dl. Will d/c IVF given elevated BP and acute CHF. will check urine lytes, Cr, urine protein/cr ratio for quantification of proteinuria. UA shows >500 glucosuria and >300mg proteinuria. Suspect underlying diabetic nephropathy. supportive care for UCHE avoid nephrotoxins, NSAIDs, IV contrast. (3) Chronic kidney disease, stage III (moderate) Current Visit: Yes Status: Acute Plan to address problem: likely due to underlying diabetic nephropathy/hypertensive nephrosclerosis. pending renal US. (4) Hypertensive chronic kidney disease with stage 1 through stage 4 chronic kidney disease, or unspecified chronic kidney disease Current Visit: Yes Status: Acute Plan to address problem: BP elevated. Will switch lasix to 40mg IV daily. Hold IV NS. (5) Type 2 diabetes mellitus with diabetic chronic kidney disease Current Visit: Yes Status: Acute Plan to address problem: glucose control as per primary attending (6) Proteinuria Current Visit: Yes Status: Acute Plan to address problem: likely due to diabetic nephropathy. will check urine protein/cr ratio. consider HUGH-I/ARB once GFR is in steady state. (7) Fever Current Visit: Yes Status: Acute Plan to address problem: cont ABX for possible pneumonia, dose all meds for current GFR
[2016-03-17] MEDS: MORPHINE IV PRN ×2 (18:08→23:24)
--- NOTE | 2016-03-17 21:49 | Admit Criteria Form ---
Admission Criteria Documentation: HEART FAILURE: COMMON COMPLICATIONS Clinical Indications for Inpatient Care (Place 'X' for any and all applicable criteria): Ongoing inpatient care may be indicated for heart failure with ANY ONE of the following (1)(2)(3)(4)(5): [ ]I. Ongoing need for care for primary condition requiring frequent therapy adjustments because of changes in cardiac function (eg, drug dosage changes for drugs that are renally metabolized) [ ]II. New-onset heart failure [ ]III. Heart failure with decreased urine output not responsive to attempts to optimize volume status [ ]IV. Acute cardiac ischemia causing or associated with failure [ X]V. Complications of heart failure, including ANY ONE of the following: [ ]a) Pericardial effusion [ ]b) Symptomatic pleural effusion [ ]c) O2 saturation <90% or PO2 < 60 mm Hg (8.0 kPa) on room air or require baseline supplemental O2 [ ]d) Tachypnea [X ]e) Dyspnea [ ]f) Syncope [ ]g) Change in mental status [ ]h) Acute renal insufficiency that is severe (reduction of more than 50% in estimated glomerular filtration rate from baseline) or progressive reduction of more than 25% in estimated glomerular filtration rate from baseline, with creatinine continuing to rise) [ ]i) Hemodynamic instability [ ]j) Anasarca [ ]k) Clinically significant metabolic abnormalities due to heart failure (eg, new-onset metabolic acidosis) Extended stay beyond goal length of stay for primary condition may be needed until ALL of the following are present(1)(3): [ ]a) Stable and effective diuretic regimen established (or patient on stable dialysis regimen if in chronic renal failure) [ ]b) Breathing comfortably at rest [ ]c) Saturation of arterial oxygen greater than 90% or at acceptable baseline [ ]d) Pulmonary edema absent or improved [ ]e) Hemodynamic stability [ ]f) Volume status acceptable on oral medication [ ]g) Peripheral or sacral edema absent or improved [ ]h) Renal function stable and manageable at a lower level of care [ ]i) Complications (eg, pleural effusion) resolved or manageable at a lower level of care [ ]j) Patient or caregiver has received written discharge instructions or educational material addressing activity level, diet, discharge medications, follow-up appointment, weight monitoring, and what to do if symptoms worsen The original [facility] content created by [employer] has been revised. The portions of the content which have been revised are identified through the use of italic text or in bold, and [facility] has neither reviewed nor approved the modified material.All other unmodified content is copyright [facility]. Please see references footnoted in the original [facility] edition 2016 Admission Criteria Met: Yes
[2016-03-18] MEDS: TYLENOL PO PRN (01:24)
[2016-03-18] MEDS: MORPHINE IV PRN ×4 (06:17→23:53)
[2016-03-18] MEDS: TESSALON PERLES PO SCH ×3 (06:18→22:46)
[2016-03-18 06:35] LABS: Hematocrit 33.5 % (35.5-45.6); Hemoglobin 11.3 gm/dl (11.8-15.2); Mean Corpuscular HGB Conc 34 % (32-34); Mean Corpuscular Hemoglobin 27 pg (28-32); Mean Corpuscular Volume 79 fl (84-94); Platelet Count 154 K/mm3 (140-440); Red Blood Count 4.23 M/mm3 (3.65-5.03); Red Cell Distribution Width 14.6 % (13.2-15.2)
[2016-03-18 06:47] LABS: BUN/Creatinine Ratio 8.88; Calcium 7.7 mg/dL (8.4-10.2); Chloride 102.7 mmol/L (98-107); Potassium 3.6 mmol/L (3.6-5.0)
--- NOTE | 2016-03-18 09:12 | Ultrasound Report ---
Renal ultrasound: The right renal length is 12 cm and the left renal length is 12.6 cm. Both kidneys have normal parenchymal thickness. Both kidneys are slightly echogenic. No evidence of hydronephrosis and no renal mass identified. Imaging of the urinary bladder is grossly normal. Impressions: Mildly echogenic kidneys consistent with medical renal disease.
--- NOTE | 2016-03-18 09:13 | Progress Note ---
Assessment and Plan 1. Acute decompensated systolic heart failure likely precipitated by fluid overload from chronic Renal failure. 2. Acute on Chronic kidney disease improving 3. Type 2 diabetes mellitus 4. Essential hypertension 5. Coronary artery disease status post PCI with stent placement Plan. Patient is currently stable will continue IV diuresis and for his fluid overload. Obtain records from [facility] office Dr Rosaura Rogers Date of service: 03/18/16 Principal diagnosis: CHF Interval history: No cardiac symptoms. Objective Vital Signs Temp Pulse Pulse Pulse Resp Resp BP 03/18/16 08:33 98.8 F 92 H 16 172/93 03/18/16 06:17 20 03/18/16 01:24 20 03/18/16 01:00 101.0 F H 102 H 20 151/76 03/17/16 23:54 20 03/17/16 23:24 18 03/17/16 22:00 102 H 20 20 03/17/16 20:13 03/17/16 16:20 99.6 F 87 20 178/81 Pulse Ox 03/18/16 08:33 97 03/18/16 06:17 03/18/16 01:24 03/18/16 01:00 96 03/17/16 23:54 03/17/16 23:24 03/17/16 22:00 96 03/17/16 20:13 97 03/17/16 16:20 99 - Physical Examination General: Appears Well, No Apparent Distress HEENT: Positive: PERRL, Mucus Membranes Moist Neck: Positive: neck supple. Negative: JVD/HJR Cardiac: Positive: Regular Rate, S1/S2, PMI, Laterally Displaced Lungs: Positive: clear to auscultation, No Wheeze, Rales, Rhonchi Neuro: Positive: Grossly Intact Abdomen: Positive: Soft, Active Bowel Sounds. Negative: Tender, Distended Extremities: Absent: edema - Labs and Meds CBC 03/17/16 03/18/16 Range/Units 13:05 06:21 WBC 7.2 5.0 (4.5-11.0) K/mm3 RBC 3.90 4.23 (3.65-5.03) M/mm3 Hgb 10.6 L 11.3 L (11.8-15.2) gm/dl Hct 30.7 L 33.5 L (35.5-45.6) % Plt Count 155 154 (140-440) K/mm3 Lymph # 1.5 (1.2-5.4) K/mm3 [place] # 0.7 (0.0-0.8) K/mm3 Eos # 0.0 (0.0-0.4) K/mm3 Baso # 0.0 (0.0-0.1) K/mm3 Comprehensive Metabolic Panel 03/18/16 Range/Units 06:21 Sodium 140 (137-145) mmol/L Potassium 3.6 (3.6-5.0) mmol/L Chloride 102.7 (98-107) mmol/L Carbon Dioxide 24 (22-30) mmol/L BUN 16 (9-20) mg/dL Creatinine 1.8 H (0.8-1.5) mg/dL Glucose 149 H (75-100) mg/dL Calcium 7.7 L (8.4-10.2) mg/dL - Imaging and Cardiology EKG: image reviewed (personally reviewed shows sinus tachycardia with a rate of 122) - EKG Sinus rhythms and dysrhythmias: sinus rhythm
--- NOTE | 2016-03-18 09:20 | Progress Note ---
Assessment and Plan Assessment and plan: 61 w pmh of htn, dm, cva, cad sp stent who presents with one day of dry cough, fever, malaise. Denies sick contacts, feels very poorly, feels very weak. Denies sick contacts, also complaining of bipedal edema x 1 week, denies hx of CHF. Did not take flu shot this year. Patient is poor historian and unable to give any information about his health. * Acute CHF Exacerbation probably systolic * Patient states that he has a hx of CHF but dose not what type, was recently at [facility], will request records * No edema on my exam, patient supine with no shortness of breath except for cough * Discussed with cardiology, with him records. Nephrology input noted continue IV Lasix creatinine is noted to be improving on this treatment plan. * Await Echo report * Acute Kidney Injury possible due to Vasomotor Nephropathy * Baseline creatinine 1.5-1.7 ?cardiorenal syndrome per choreography director * patient states that he is suppose to follow with nephrology, unsure what the baseline is. await requested records * Consult Nephrology * Check US renal, Avoid nephrotoxic meds * Per Data Security Analyst "will check urine lytes, Cr, urine protein/cr ratio for quantification of proteinuria. UA shows >500 glucosuria and >300mg proteinuria. Suspect underlying diabetic nephropathy. supportive care for UCHE avoid nephrotoxins, NSAIDs, IV contrast" * Abdominal pain * Check CT abdomen and pelvis, this was sensitive machine may be downloads on ultrasound of the abdomen. We'll check LFTs and lipase. * Sepsis r/o Pneumonia vs acute bronchitis * Still with intermittent fever MAXIMUM TEMPERATURE 101 * Continue Levaquin, as patient has allergy to PCN. check lactic acid. Bcx reviewed, no growth * D/C tamiflu * Cough * non productive. * Causing chest pain- musculoskeltal * Musculoskeletal chest pain * related to the cough, await cardiology input * Hypertensive Urgency * continue BB, Hydralazine, NO ACEI/ARB due to renal function * Anticipate improvement with addition of lasix, otherwise may add other agents * Sinus tachycardia * Likely secondary to cough on underline and infectious process. * Metabolic Acidosis * likely due to renal function abnormality * Hypokalemia likely due to renal dysfunction * replace * DM * controlled, continue current therapy * Nicotine abuse * Counselling provided on quit methods and risk of continued use, patient verablized understanding * Bilateral pedal edema * await u/s lower ext * CAD * continue asa, home meds * BPH * Patient state he has some prostrate problems in the past, and has been on abx but again unsure of his hx. * Proteinuria * We'll consider HUGH-I OR ARB arm once GFR stable * DVT and GI prophylaxis * Discussed case with air crew member . History Interval history: Follow-up cough with shortness of breath Patient seen and examined this morning in no acute distress, reports fever and persistent nonproductive cough also chest wall pain. Today complaints of abdominal pain with every movement. Rates the pain at 3/10 in intensity only associated with cough no radiation Denies any nausea, vomiting, diarrhea No fever noted blood pressure controlled No adverse events reported to me by nursing staff Hospitalist Physical - Physical exam Narrative exam: VITAL SIGNS: Reviewed. GENERAL: The patient appeared well nourished and normally developed. Vital signs as documented. HEAD: No signs of head trauma. EYES: Pupils are equal. Extraocular motions intact. EARS: Hearing grossly intact. MOUTH: Oropharynx is normal. NECK: No adenopathy, no JVD. CHEST: Chest with crackles breath sounds bilaterally. No wheezes. CARDIAC: Regular rate and rhythm. S1 and S2, without murmurs, gallops, or rubs. VASCULAR: No Edema. Peripheral pulses normal and equal in all extremities. ABDOMEN: Soft, tender in the epigastric area. No sign of distention. No rebound or guarding, and no masses palpated. Bowel Sounds normal. MUSCULOSKELETAL: Right upper extremity cyst, Good range of motion of all major joints. Extremities without clubbing, cyanosis or edema. NEUROLOGIC EXAM: Alert and oriented x 3. No focal sensory or strength deficits. Speech normal. Follows commands. PSYCHIATRIC: Mood normal. SKIN: Warm to touch, No rash or lesions. - Constitutional Vitals: Temp Pulse Resp BP Pulse Ox 98.8 F 92 H 16 172/93 97 03/18/16 08:33 03/18/16 08:33 03/18/16 08:33 03/18/16 08:33 03/18/16 08:33 General appearance: Present: no acute distress, well-nourished Results - Labs CBC & Chem 7: 03/18/16 06:21 03/18/16 06:21 Labs: Laboratory Last Values WBC 5.0 K/mm3 (4.5-11.0) 03/18/16 06:21 RBC 4.23 M/mm3 (3.65-5.03) 03/18/16 06:21 Hgb 11.3 gm/dl (11.8-15.2) L 03/18/16 06:21 Hct 33.5 % (35.5-45.6) L 03/18/16 06:21 MCV 79 fl (84-94) L 03/18/16 06:21 MCH 27 pg (28-32) L 03/18/16 06:21 MCHC 34 % (32-34) 03/18/16 06:21 RDW 14.6 % (13.2-15.2) 03/18/16 06:21 Plt Count 154 K/mm3 (140-440) 03/18/16 06:21 Lymph % (Auto) 20.6 % (13.4-35.0) 03/17/16 13:05 [place] % (Auto) 10.0 % (0.0-7.3) H 03/17/16 13:05 Eos % (Auto) 0.5 % (0.0-4.3) 03/17/16 13:05 Baso % (Auto) 0.7 % (0.0-1.8) 03/17/16 13:05 Lymph # 1.5 K/mm3 (1.2-5.4) 03/17/16 13:05 [place] # 0.7 K/mm3 (0.0-0.8) 03/17/16 13:05 Eos # 0.0 K/mm3 (0.0-0.4) 03/17/16 13:05 Baso # 0.0 K/mm3 (0.0-0.1) 03/17/16 13:05 Seg Neutrophils % 68.2 % (40.0-70.0) 03/17/16 13:05 Seg Neutrophils # 4.9 K/mm3 (1.8-7.7) 03/17/16 13:05 Sodium 140 mmol/L (137-145) 03/18/16 06:21 Potassium 3.6 mmol/L (3.6-5.0) 03/18/16 06:21 Chloride 102.7 mmol/L (98-107) 03/18/16 06:21 Carbon Dioxide 24 mmol/L (22-30) 03/18/16 06:21 Anion Gap 17 mmol/L 03/18/16 06:21 BUN 16 mg/dL (9-20) 03/18/16 06:21 Creatinine 1.8 mg/dL (0.8-1.5) H 03/18/16 06:21 Estimated GFR 39 ml/min 03/18/16 06:21 BUN/Creatinine Ratio 8.88 % 03/18/16 06:21 Glucose 149 mg/dL (75-100) H 03/18/16 06:21 POC Glucose 137 (70-105) H 03/18/16 06:54 Lactic Acid 0.9 mmol/L (0.7-2.0) 03/17/16 13:05 Calcium 7.7 mg/dL (8.4-10.2) L 03/18/16 06:21 Total Creatine Kinase 125 units/L (55-170) 03/16/16 06:32 CK-MB (CK-2) < 1.0 ng/mL (0.0-4.0) 03/16/16 06:32 CK-MB (CK-2) Rel Index 0.8 (0-4) 03/16/16 06:32 Troponin T < 0.010 ng/mL (0.00-0.029) 03/16/16 06:32 NT-Pro-B Natriuret Pep 2313 pg/mL (0-900) H 03/16/16 06:32 Urine Color Yellow (Yellow) 03/16/16 08:40 Urine Turbidity Clear (Clear) 03/16/16 08:40 Urine pH 5.0 (5.0-7.0) 03/16/16 08:40 Ur Specific [place] 1.013 (1.003-1.030) 03/16/16 08:40 Urine Protein >500 mg/dL (Negative) 03/16/16 08:40 Urine Glucose (UA) >=500 mg/dL (Negative) 03/16/16 08:40 Urine Ketones Neg mg/dL (Negative) 03/16/16 08:40 Urine Blood Sm (Negative) 03/16/16 08:40 Urine Nitrite Neg (Negative) 03/16/16 08:40 Urine Bilirubin Neg (Negative) 03/16/16 08:40 Urine Urobilinogen < 2.0 mg/dL (<2.0) 03/16/16 08:40 Ur Leukocyte Esterase Neg (Negative) 03/16/16 08:40 Urine WBC (Auto) 2.0 /HPF (0.0-6.0) 03/16/16 08:40 Urine RBC (Auto) 3.0 /HPF (0.0-6.0) 03/16/16 08:40 U Epithel Cells (Auto) < 1.0 /HPF (0-13.0) 03/16/16 08:40 Amorphous Crystals Few 03/16/16 08:40 Hyaline Casts 1 /LPF 03/16/16 08:40 Urine Mucus Few /HPF 03/16/16 08:40 Urine Osmolality 337 Mosm/kg 03/17/16 18:20 Urine Creatinine 65.8 mg/dL (0.1-20.0) H 03/17/16 18:20 Urine Sodium 77 mEq/L 03/17/16 18:20 Urine Total Protein 327 mg/dL (5-11.8) H 03/17/16 18:20 Urine Opiates Screen Presumptive negative 03/16/16 08:40 Urine Methadone Screen Presumptive negative 03/16/16 08:40 Ur Barbiturates Screen Presumptive negative 03/16/16 08:40 Ur Phencyclidine Scrn Presumptive negative 03/16/16 08:40 Ur Amphetamines Screen Presumptive negative 03/16/16 08:40 U Benzodiazepines Scrn Presumptive positive 03/16/16 08:40 Urine Cocaine Screen Presumptive negative 03/16/16 08:40 U Marijuana (THC) Screen Presumptive negative 03/16/16 08:40 Drugs of Abuse Note Disclamer 03/16/16 08:40 - Imaging and Cardiology CT scan - abdomen: pending US - abdomen: pending (ordered)
--- NOTE | 2016-03-18 09:46 | Progress Note ---
Assessment and Plan - Patient Problems (1) Congestive heart failure Current Visit: Yes Status: Acute Plan to address problem: awaiting Echocardiogram report. continue diuresis with lasix 40mg IV daily to target net negative fluid balance of >1L/day strict I/Os, na and fluid restriction. (2) Acute kidney injury superimposed on CKD Current Visit: Yes Status: Acute Plan to address problem: possible acute cardiorenal syndrome superimposed on CKD; upon chart review at [facility] records, baseline Cr around 1.5-17mg/dl. Renal US shows echogenic kidneys c/ w CKD. UA shows >500 glucosuria and >300mg proteinuria. Suspect underlying diabetic nephropathy. Spot urine protein/cr ratio >5g/g, likely due to diabetic nephropathy. supportive care for UCHE avoid nephrotoxins, NSAIDs, IV contrast. . (3) Chronic kidney disease, stage III (moderate) Current Visit: Yes Status: Acute Plan to address problem: likely due to underlying diabetic nephropathy/hypertensive nephrosclerosis. pending renal US. (4) Hypertensive chronic kidney disease with stage 1 through stage 4 chronic kidney disease, or unspecified chronic kidney disease Current Visit: Yes Status: Acute Plan to address problem: BP remains elevated. continue current BP regimen incl. lasix to 40mg IV daily. Will start low dose lisinopril given significant proteinuria/CHF, since GFR is not far off from pt's baseline. (5) Type 2 diabetes mellitus with diabetic chronic kidney disease Current Visit: Yes Status: Acute Plan to address problem: glucose control as per primary attending (6) Proteinuria Current Visit: Yes Status: Acute Plan to address problem: likely due to diabetic nephropathy. urine protein/cr ratio >5g/g. start lisinopril. (7) Fever Current Visit: Yes Status: Acute Plan to address problem: cont ABX for possible pneumonia, dose all meds for current GFR Subjective Date of service: 03/18/16 Principal diagnosis: CHF Interval history: patient awake alert, c/o sharp misternal chest pain, non radiating, not a/w n/ v. Objective - Vital Signs Vital signs: Vital Signs - 12hr 03/17/16 03/17/16 03/17/16 22:00 23:24 23:54 Temperature Pulse Rate [ Brachial] Pulse Rate [ 102 H Right Radial] Respiratory 20 18 20 Rate Respiratory 20 Rate [ Generalized] Blood Pressure [Left Arm] O2 Sat by Pulse 96 Oximetry 03/18/16 03/18/16 03/18/16 01:00 01:24 06:17 Temperature 101.0 F H Pulse Rate [ Brachial] Pulse Rate [ 102 H Right Radial] Respiratory 20 20 20 Rate Respiratory Rate [ Generalized] Blood Pressure 151/76 [Left Arm] O2 Sat by Pulse 96 Oximetry 03/18/16 03/18/16 08:33 09:39 Temperature 98.8 F Pulse Rate [ 92 H Brachial] Pulse Rate [ Right Radial] Respiratory 16 Rate Respiratory Rate [ Generalized] Blood Pressure 172/93 [Left Arm] O2 Sat by Pulse 97 98 Oximetry - General Appearance General appearance: well-developed, well-nourished, appears stated age EENT: ATNC, PERRL, mucous membranes moist Neck: no JVD Respiratory: Present: Decreased Breath Sounds Cardiology: regular, S1S2 Gastrointestinal: normal Integumentary: no rash, other (no edema ) Neurologic: no focal deficit, alert and oriented x3, CN 3-12 intact Psychiatric: mood/affect appropriate, cooperative - Lab 03/18/16 06:21 03/18/16 06:21 Most recent lab results Calcium 7.7 mg/dL (8.4-10.2) L 03/18/16 06:21 Urine Creatinine 65.8 mg/dL (0.1-20.0) H 03/17/16 18:20 Urine Sodium 77 mEq/L 03/17/16 18:20 Urine Total Protein 327 mg/dL (5-11.8) H 03/17/16 18:20
[2016-03-18] MEDS: LASIX IV SCH (09:52)
[2016-03-18] MEDS: PROTONIX PO SCH (09:53)
[2016-03-18] MEDS: LOVENOX SUB-Q SCH (09:53)
[2016-03-18] MEDS: HABITROL TD SCH ×2 (09:53→09:58)
[2016-03-18] MEDS: PLAVIX PO SCH (09:54)
[2016-03-18] MEDS: LOPRESSOR PO SCH (09:54)
[2016-03-18] MEDS: NOVOLOG SUB-Q SCH ×3 (09:54→16:40)
[2016-03-18] MEDS ORDERED: LASIX PO SCH (10:00)
[2016-03-18 11:17] LABS: Alanine Aminotransferase 9 units/L (7-56); Albumin 2.9 g/dL (3.9-5); Alkaline Phosphatase 59 units/L (35-129); Bilirubin,Total 0.2 mg/dL (0.1-1.2); Lipase 24 units/L (13-60); Total Protein 5.9 g/dL (6.3-8.2)
[2016-03-18 11:18] LABS: Bilirubin,Direct < 0.2 mg/dL (0-0.2)
[2016-03-18] MEDS: ZESTRIL PO SCH (12:13)
--- NOTE | 2016-03-18 15:12 | Cat Scan Report ---
CT abdomen and pelvis without IV contrast: Transverse images are obtained from the left ischium with coronal and sagittal 2-D reformatted images. There are small bilateral pleural effusions. No pulmonary infiltrates identified. There is a small hiatus hernia. The abdominal and retroperitoneal organs appeared generally unremarkable except for mild perinephric stranding bilaterally. Abdominal aorta is normal in size and contour with scattered mural calcification. The partially opacified small bowel and unopacified colon are generally unremarkable for significant pathology. There is mild gaseous distention of the descending and sigmoid portions of the colon. The appendix is visualized and appears normal. There are no inflammatory changes identified. No free or localized fluid and no free air. No adenopathy. Pelvic sections demonstrates an enlarged prostate with mild indentation on the bladder base. The bladder minor are not thickened. Multilevel mild lumbar spondylosis. Impressions: 1. Small bilateral pleural effusions. 2. Small hiatus hernia. 3. Prostatic enlargement.
--- NOTE | 2016-03-18 16:02 | Ultrasound Report ---
Complete abdominal ultrasound: Imaging of the liver is not optimal but there is no echogenic abnormalities. The spleen appears somewhat prominent in size having a length of 13 cm. The overall volume however does not appear grossly large. The pancreas is not optimally seen but grossly unremarkable. The CBD diameter is 5 mm. The right renal length is 12.5 cm and the left renal length is 12.1 cm. Both kidneys appear to be echogenically unremarkable. Impressions: Limited quality exam of the liver and spleen. No definite pathology identified.
[2016-03-18] MEDS ORDERED: LEVAQUIN 750MG/150ML 150 ML IV SCH (22:00)
[2016-03-18] MEDS: XANAX PO PRN (22:45)
[2016-03-19] MEDS: TESSALON PERLES PO SCH ×3 (05:30→22:57)
[2016-03-19 07:14] LABS: Calcium 7.7 mg/dL (8.4-10.2); Chloride 98.2 mmol/L (98-107); Potassium 3.3 mmol/L (3.6-5.0)
--- NOTE | 2016-03-19 08:56 | Progress Note ---
Assessment and Plan Assessment and plan: 61 w pmh of htn, dm, cva, cad sp stent who presents with one day of dry cough, fever, malaise. Denies sick contacts, feels very poorly, feels very weak. Denies sick contacts, also complaining of bipedal edema x 1 week, denies hx of CHF. Did not take flu shot this year. Patient is poor historian and unable to give any information about his health. * Acute CHF Exacerbation probably systolic * Patient states that he has a hx of CHF but dose not what type, was recently at [facility], will request records. * Per cardiology Documentation "Acute decompensated systolic heart failure likely precipitated by fluid overload from chronic Renal failur" * No edema on my exam, patient supine with no shortness of breath except for cough * Discussed with cardiology, with him records. Nephrology input noted continue IV Lasix creatinine is noted to be improving on this treatment plan. * Await Echo report * Acute Kidney Injury possible due to Vasomotor Nephropathy * Baseline creatinine 1.5-1.7 ?cardiorenal syndrome versus diabetic nephropathy per tong hooker * patient states that he is suppose to follow with nephrology, unsure what the baseline is. await requested records * Check US renal, Avoid nephrotoxic meds * Per Agriscience Technology Instructor "will check urine lytes, Cr, urine protein/cr ratio for quantification of proteinuria. UA shows >500 glucosuria and >300mg proteinuria. Suspect underlying diabetic nephropathy. supportive care for UCHE avoid nephrotoxins, NSAIDs, IV contrast" * Abdominal pain * Patient reports this is chronic for some time about two month to be exact and also restricts movement trying to get up while lying supine due to pain in the epigastric to substernal chest area. CT of the chest was unrevealing ultrasound was also unrevealing. LFTs and lipase are within normal range. * Sepsis r/o Pneumonia vs acute bronchitis * No new fever today. MAXIMUM TEMPERATURE noted yesterday in the morning was 101. * Continue Levaquin, as patient has allergy to PCN. check lactic acid. Bcx reviewed, no growth * D/C tamiflu * Cough * non productive. * Causing chest pain- musculoskeltal * Musculoskeletal chest pain * Patient reports that this has been chronic sometimes restricting his ability to get up while lying supine. * related to the cough, allergy input noted * Hypertensive Urgency * continue BB, Hydralazine, NO ACEI/ARB due to renal function * Anticipate improvement with addition of lasix, otherwise may add other agents * Sinus tachycardia * Likely secondary to cough on underline and infectious process. * Metabolic Acidosis * likely due to renal function abnormality * Hypokalemia likely due to renal dysfunction * replace * DM * Elevation of blood sugar today and will adjust insulin regimen. * Nicotine abuse * Counselling provided on quit methods and risk of continued use, patient verablized understanding * Bilateral pedal edema * Improved * CAD * continue asa, home meds * BPH * Patient state he has some prostrate problems in the past, and has been on abx but again unsure of his hx. * Proteinuria * We'll consider HUGH-I OR ARB arm once GFR stable * DVT and GI prophylaxis * Discussed case with the patient in detail * Disposition if all remains stable anticipate discharge in a.m. . History Interval history: Follow-up cough with shortness of breath Patient seen and examined this morning in no acute distress, No fever but still with persistent nonproductive cough also chest -epigastric wall pain. Rates the pain at 3/10 in intensity only associated with cough no radiation. He informs me today that this happened 2 months ago, and has since been intermittent Denies any nausea, vomiting, diarrhea No fever noted blood pressure controlled No adverse events reported to me by nursing staff Hospitalist Physical - Physical exam Narrative exam: VITAL SIGNS: Reviewed. GENERAL: The patient appeared well nourished and normally developed. Vital signs as documented. HEAD: No signs of head trauma. EYES: Pupils are equal. Extraocular motions intact. EARS: Hearing grossly intact. MOUTH: Oropharynx is normal. NECK: No adenopathy, no JVD. CHEST: Chest with crackles breath sounds bilaterally. No wheezes. CARDIAC: Regular rate and rhythm. S1 and S2, without murmurs, gallops, or rubs. VASCULAR: No Edema. Peripheral pulses normal and equal in all extremities. ABDOMEN: Soft, tender in the epigastric area. No sign of distention. No rebound or guarding, and no masses palpated. Bowel Sounds normal. MUSCULOSKELETAL: Right upper extremity cyst, Good range of motion of all major joints. Extremities without clubbing, cyanosis or edema. NEUROLOGIC EXAM: Alert and oriented x 3. No focal sensory or strength deficits. Speech normal. Follows commands. PSYCHIATRIC: Mood normal. SKIN: Warm to touch, No rash or lesions. - Constitutional Vitals: Temp Pulse Resp BP Pulse Ox 98.6 F 85 18 130/72 96 03/19/16 07:52 03/19/16 07:52 03/19/16 07:52 03/19/16 07:52 03/19/16 08:35 General appearance: Present: no acute distress, well-nourished Results - Labs CBC & Chem 7: 03/18/16 06:21 03/19/16 06:29 Labs: Laboratory Last Values WBC 5.0 K/mm3 (4.5-11.0) 03/18/16 06:21 RBC 4.23 M/mm3 (3.65-5.03) 03/18/16 06:21 Hgb 11.3 gm/dl (11.8-15.2) L 03/18/16 06:21 Hct 33.5 % (35.5-45.6) L 03/18/16 06:21 MCV 79 fl (84-94) L 03/18/16 06:21 MCH 27 pg (28-32) L 03/18/16 06:21 MCHC 34 % (32-34) 03/18/16 06:21 RDW 14.6 % (13.2-15.2) 03/18/16 06:21 Plt Count 154 K/mm3 (140-440) 03/18/16 06:21 Lymph % (Auto) 20.6 % (13.4-35.0) 03/17/16 13:05 [place] % (Auto) 10.0 % (0.0-7.3) H 03/17/16 13:05 Eos % (Auto) 0.5 % (0.0-4.3) 03/17/16 13:05 Baso % (Auto) 0.7 % (0.0-1.8) 03/17/16 13:05 Lymph # 1.5 K/mm3 (1.2-5.4) 03/17/16 13:05 [place] # 0.7 K/mm3 (0.0-0.8) 03/17/16 13:05 Eos # 0.0 K/mm3 (0.0-0.4) 03/17/16 13:05 Baso # 0.0 K/mm3 (0.0-0.1) 03/17/16 13:05 Seg Neutrophils % 68.2 % (40.0-70.0) 03/17/16 13:05 Seg Neutrophils # 4.9 K/mm3 (1.8-7.7) 03/17/16 13:05 Sodium 135 mmol/L (137-145) L 03/19/16 06:29 Potassium 3.3 mmol/L (3.6-5.0) L 03/19/16 06:29 Chloride 98.2 mmol/L (98-107) 03/19/16 06:29 Carbon Dioxide 24 mmol/L (22-30) 03/19/16 06:29 Anion Gap 16 mmol/L 03/19/16 06:29 BUN 19 mg/dL (9-20) 03/19/16 06:29 Creatinine 1.9 mg/dL (0.8-1.5) H 03/19/16 06:29 Estimated GFR 36 ml/min 03/19/16 06:29 BUN/Creatinine Ratio 10.00 % 03/19/16 06:29 Glucose 277 mg/dL (75-100) H 03/19/16 06:29 POC Glucose 297 (70-105) H 03/19/16 05:53 Lactic Acid 0.9 mmol/L (0.7-2.0) 03/17/16 13:05 Calcium 7.7 mg/dL (8.4-10.2) L 03/19/16 06:29 Total Bilirubin 0.2 mg/dL (0.1-1.2) 03/18/16 10:44 Direct Bilirubin < 0.2 mg/dL (0-0.2) 03/18/16 10:44 Indirect Bilirubin 0.0 mg/dL 03/18/16 10:44 AST 12 units/L (5-40) 03/18/16 10:44 ALT 9 units/L (7-56) 03/18/16 10:44 Alkaline Phosphatase 59 units/L (35-129) 03/18/16 10:44 Total Creatine Kinase 125 units/L (55-170) 03/16/16 06:32 CK-MB (CK-2) < 1.0 ng/mL (0.0-4.0) 03/16/16 06:32 CK-MB (CK-2) Rel Index 0.8 (0-4) 03/16/16 06:32 Troponin T < 0.010 ng/mL (0.00-0.029) 03/16/16 06:32 NT-Pro-B Natriuret Pep 2313 pg/mL (0-900) H 03/16/16 06:32 Total Protein 5.9 g/dL (6.3-8.2) L 03/18/16 10:44 Albumin 2.9 g/dL (3.9-5) L 03/18/16 10:44 Albumin/Globulin Ratio 1.0 % 03/18/16 10:44 Lipase 24 units/L (13-60) 03/18/16 10:44 Urine Color Yellow (Yellow) 03/16/16 08:40 Urine Turbidity Clear (Clear) 03/16/16 08:40 Urine pH 5.0 (5.0-7.0) 03/16/16 08:40 Ur Specific [place] 1.013 (1.003-1.030) 03/16/16 08:40 Urine Protein >500 mg/dL (Negative) 03/16/16 08:40 Urine Glucose (UA) >=500 mg/dL (Negative) 03/16/16 08:40 Urine Ketones Neg mg/dL (Negative) 03/16/16 08:40 Urine Blood Sm (Negative) 03/16/16 08:40 Urine Nitrite Neg (Negative) 03/16/16 08:40 Urine Bilirubin Neg (Negative) 03/16/16 08:40 Urine Urobilinogen < 2.0 mg/dL (<2.0) 03/16/16 08:40 Ur Leukocyte Esterase Neg (Negative) 03/16/16 08:40 Urine WBC (Auto) 2.0 /HPF (0.0-6.0) 03/16/16 08:40 Urine RBC (Auto) 3.0 /HPF (0.0-6.0) 03/16/16 08:40 U Epithel Cells (Auto) < 1.0 /HPF (0-13.0) 03/16/16 08:40 Amorphous Crystals Few 03/16/16 08:40 Hyaline Casts 1 /LPF 03/16/16 08:40 Urine Mucus Few /HPF 03/16/16 08:40 Urine Osmolality 337 Mosm/kg 03/17/16 18:20 Urine Creatinine 65.8 mg/dL (0.1-20.0) H 03/17/16 18:20 Urine Sodium 77 mEq/L 03/17/16 18:20 Urine Total Protein 327 mg/dL (5-11.8) H 03/17/16 18:20 Urine Opiates Screen Presumptive negative 03/16/16 08:40 Urine Methadone Screen Presumptive negative 03/16/16 08:40 Ur Barbiturates Screen Presumptive negative 03/16/16 08:40 Ur Phencyclidine Scrn Presumptive negative 03/16/16 08:40 Ur Amphetamines Screen Presumptive negative 03/16/16 08:40 U Benzodiazepines Scrn Presumptive positive 03/16/16 08:40 Urine Cocaine Screen Presumptive negative 03/16/16 08:40 U Marijuana (THC) Screen Presumptive negative 03/16/16 08:40 Drugs of Abuse Note Disclamer 03/16/16 08:40
[2016-03-19] MEDS: NOVOLOG SUB-Q SCH ×4 (08:59→19:31)
[2016-03-19] MEDS: LOVENOX SUB-Q SCH (09:00)
[2016-03-19] MEDS: LASIX IV SCH (09:00)
[2016-03-19] MEDS: PLAVIX PO SCH (09:00)
[2016-03-19] MEDS: LOPRESSOR PO SCH (09:00)
[2016-03-19] MEDS: ZESTRIL PO SCH (09:01)
[2016-03-19] MEDS: HABITROL TD SCH (09:01)
[2016-03-19] MEDS: PROTONIX PO SCH (09:02)
[2016-03-19] MEDS ORDERED: K-DUR PO ONE (10:00)
[2016-03-19] MEDS ORDERED: LEVAQUIN 500MG/100ML 100 ML IV SCH (10:00)
[2016-03-19] MEDS: MORPHINE IV PRN ×2 (10:33→19:31)
--- NOTE | 2016-03-19 10:39 | Echocardiography Report ---
Transthoracic Echocardiogram Indication: HEART FAILURE BP: 147/84 HR: 90 Findings Procedure Info: The study quality is good. Left Ventricle: The left ventricular chamber size is normal. Mild concentric left ventricular hypertrophy is observed. Global left ventricular systolic function is normal. The estimated ejection fraction is 55-60%. The mid anterolateral, and apical lateral wall segments are hypokinetic. Left Atrium: The left atrium is mildly dilated. Right Ventricle: The right ventricle wall thickness is normal. The right ventricular cavity size is normal. The right ventricular global systolic function is normal. No pacemaker wire is visualized in the right ventricle. Right Atrium: The right atrial cavity size is normal. No pacemaker wire is visualized in the right atrium. A patent foramen ovale is not demonstrated by color Doppler. Aortic Valve: The aortic valve is trileaflet. The aortic valve leaflets are moderately thickened. Systolic excursion of the aortic valve is normal. There is no evidence of aortic regurgitation. There is no evidence of aortic stenosis. The peak instantaneous gradient of the aortic valve is 7 mmHg. The aortic valve area, by peak velocities, is calculated at 3.74 cm2. Mitral Valve: The mitral valve leaflets appear myxomatous. The mitral valve leaflets are mildly thickened. There is mild mitral regurgitation. There is no evidence of mitral stenosis. Tricuspid Valve: There is mild to moderate tricuspid regurgitation. The tricuspid regurgitant jet is centrally directed. The right ventricular systolic pressure is calculated at 37 mmHg. The right ventricular systolic pressure is estimated to be 35-40 mmHg. There is evidence of mild pulmonary hypertension. There is no tricuspid stenosis. Pulmonic Valve: The pulmonic valve is not well visualized. There is no evidence of pulmonic regurgitation. There is no pulmonic stenosis. Pericardium: There is no pericardial effusion. No pleural effusion is present. Aorta: The aorta appears normal. Pulmonary Artery: The main pulmonary artery is not well visualized. Measurements Chambers MM Name Value Normal Range IVSd (MM) 0.69 cm (0.6 - 1.1) LVPWd (MM) 1.27 cm (0.6 - 1.1) IVS:LVPW ratio 0.55 ratio - LVIDd (MM) 5.31 cm (3.7 - 5.6) LVIDs (MM) 3.02 cm (2 - 2.8) LV FS (Teichholz) (MM) 43.1 % - LV FS (cube) (MM) 43.1 % - EF Teichholz (MM) 73.8 % - Ao root diameter (MM) 3.2 cm (2 - 3.7) LA dimension (AP) MM 5 cm (1.9 - 4) LA:Ao ratio (MM) 1.56 ratio - AV cusp separation (MM) 1.9 cm (1.5 - 2.6) Chambers 2D Name Value Normal Range IVSd (2D) 1.24 cm (0.6 - 1.1) LVPWd 1 cm - LVPWd (2D) 0.95 cm (0.6 - 1.1) IVS:LVPW ratio (2D) 1.3 ratio - LVIDd 4.2 cm - LVIDs 2.8 cm - LVIDd (2D) 4.2 cm (3.7 - 5.6) LVIDs (2D) 2.81 cm (2 - 3.8) LV FS (Teichholz) (2D) 33.1 % - LV FS (cube) (2D) 33.1 % - LV EF (2D) 62 % - EF Teichholz (2D) 62.1 % - LA dimension 4.3 cm - Ao root diameter (2D) 3.2 cm (2 - 3.7) LA dimension (AP) 2D 4.3 cm (1.9 - 4) LA:Ao ratio (2D) 1.34 ratio - Volumes/Mass Name Value Normal Range LA ESV SP 4CH (MOD) 61 ml - LV EDV SP 4CH (MOD) 96 ml - LV ESV SP 4CH (MOD) 51 ml - EF SP 4CH (MOD) 47 % - LV EDV SP 2CH (MOD) 82 ml - LV ESV SP 2CH (MOD) 34 ml - EF SP 2CH (MOD) 59 % - LV EDV BP 90 ml - LV ESV BP 44 ml - BP EF (MOD) 51 % - Diastolic/Systolic Function Name Value Normal Range MV E-wave Vmax 1.04 m/sec - MV deceleration time 211 msec - MV A-wave Vmax 1.4 m/sec - MV E:A ratio 0.7 ratio - LV septal e' Vmax 0.08 m/sec - LV lateral e' Vmax 0.08 m/sec - LV E:e' septal ratio 13.5 ratio - LV E:e' lateral ratio 13 ratio - Aortic Valve Name Value Normal Range AV Vmax 1.33 m/sec - AV peak gradient 7 mmHg - LVOT diameter 2.6 cm - LVOT Vmax 0.94 m/sec - LVOT peak gradient 4 mmHg - ANDREY (continuity Vmax) 3.74 cm2 - Tricuspid Valve Name Value Normal Range TR Vmax 2.9 m/sec - TR peak gradient 34 mmHg - RAP 3 mmHg - RVSP 37 mmHg - Pulmonic Valve/Qp:Qs Name Value Normal Range PV Vmax 1.22 m/sec - PV peak gradient 6 mmHg - PV acceleration time 116 msec - Wallmotion BAS Not Seen BA Not Seen BAL Not Seen MARTHA Not Seen BI Not Seen BIS Not Seen MAS Not Seen MA Not Seen MAL Hypokinetic MIL Not Seen MD Not Seen MIS Not Seen Not Seen AA Not Seen AL Hypokinetic AI Not Seen APEX Not Seen
--- NOTE | 2016-03-19 11:23 | Progress Note ---
Assessment and Plan - Patient Problems (1) Acute on chronic diastolic (congestive) heart failure Current Visit: Yes Status: Acute Plan to address problem: improving volume status on IV lasix. will switch to oral lasix 40mg po qd. Echo showing nl LVSF with EF of 55-60%.continue lisinopril along with BB. (2) Acute kidney injury superimposed on CKD Current Visit: Yes Status: Acute Plan to address problem: possible acute cardiorenal syndrome superimposed on CKD; upon chart review at [facility] records, baseline Cr around 1.5-17mg/dl. Renal US shows echogenic kidneys c/ w CKD. Suspect underlying diabetic nephropathy given significant proteinuria with Spot urine protein/cr ratio >5g/g. continue lisinopril 10mg po qd, will titrate up gradually as outpatient. continue supportive care for UCHE avoid nephrotoxins, NSAIDs, IV contrast.. (3) Chronic kidney disease, stage III (moderate) Current Visit: Yes Status: Acute Plan to address problem: likely due to underlying diabetic nephropathy/hypertensive nephrosclerosis. renal US showing echogenic kidneys b/l c/w CKD. (4) Hypertensive chronic kidney disease with stage 1 through stage 4 chronic kidney disease, or unspecified chronic kidney disease Current Visit: Yes Status: Acute Plan to address problem: BP remains elevated. continue current BP regimen incl. lasix to 40mg IV daily. Will start low dose lisinopril given significant proteinuria/CHF, since GFR is not far off from pt's baseline. (5) Type 2 diabetes mellitus with diabetic chronic kidney disease Current Visit: Yes Status: Acute Plan to address problem: glucose control as per primary attending (6) Proteinuria Current Visit: Yes Status: Acute Plan to address problem: likely due to diabetic nephropathy. urine protein/cr ratio >5g/g. started lisinopril.. (7) Fever Current Visit: Yes Status: Acute Plan to address problem: cont ABX for possible pneumonia, dose all meds for current GFR Subjective Date of service: 03/19/16 Principal diagnosis: CHF Interval history: patient awake, alert, in NAD, reports improved breathing Objective - Vital Signs Vital signs: Vital Signs - 12hr 03/19/16 03/19/16 03/19/16 00:00 07:52 08:35 Temperature 98.7 F 98.6 F Pulse Rate [ 92 H 85 Brachial] Respiratory 20 18 Rate Blood Pressure 147/72 130/72 [Left Arm] O2 Sat by Pulse 98 97 96 Oximetry - General Appearance General appearance: well-developed, well-nourished, appears stated age EENT: ATNC, PERRL, mucous membranes moist Neck: no JVD Respiratory: Present: Decreased Breath Sounds Cardiology: regular, S1S2 Gastrointestinal: normal, normoactive bowel sounds Integumentary: no rash, other (no edema ) Neurologic: no focal deficit, alert and oriented x3, strength 5/5, CN 3-12 intact Psychiatric: mood/affect appropriate, cooperative - Lab 03/18/16 06:21 03/19/16 06:29 Most recent lab results Calcium 7.7 mg/dL (8.4-10.2) L 03/19/16 06:29 Urine Creatinine 65.8 mg/dL (0.1-20.0) H 03/17/16 18:20 Urine Sodium 77 mEq/L 03/17/16 18:20 Urine Total Protein 327 mg/dL (5-11.8) H 03/17/16 18:20
--- NOTE | 2016-03-19 12:57 | Progress Note ---
Assessment and Plan - Patient Problems (1) Congestive heart failure Current Visit: Yes Status: Acute Plan to address problem: The patient has a history of coronary artery disease, with multiple coronary stents most recently 5 years ago. He was admitted at this time with inspected fluid overload and congestive heart failure. Echocardiogram reports normal left ventricle systolic function, ejection fraction 55-60%. Further ischemic cardiac workup is indicated, will get a Persantine thallium stress test in the morning. Subjective Date of service: 03/19/16 Principal diagnosis: CHF Interval history: The patient has a history of coronary artery disease, with multiple coronary stents most recently 5 years ago. He was admitted at this time with inspected fluid overload and congestive heart failure. Echocardiogram reports normal left ventricle systolic function, ejection fraction 55-60%. Objective Vital Signs Temp Pulse Resp BP Pulse Ox 03/19/16 08:35 96 03/19/16 07:52 98.6 F 85 18 130/72 97 03/19/16 00:00 98.7 F 92 H 20 147/72 98 03/18/16 22:00 100 H 20 03/18/16 20:44 94 03/18/16 16:25 99.1 F 92 H 20 163/83 - Physical Examination General: Appears Well, No Apparent Distress HEENT: Positive: PERRL, Mucus Membranes Moist Neck: Positive: neck supple. Negative: JVD/HJR Cardiac: Positive: Reg Rate and Rhythm Lungs: Positive: Decreased Breath Sounds Neuro: Positive: Grossly Intact Abdomen: Positive: Soft, Active Bowel Sounds. Negative: Tender, Distended Skin: Positive: Clear Extremities: Absent: edema - Labs and Meds Comprehensive Metabolic Panel 03/19/16 Range/Units 06:29 Sodium 135 L (137-145) mmol/L Potassium 3.3 L (3.6-5.0) mmol/L Chloride 98.2 (98-107) mmol/L Carbon Dioxide 24 (22-30) mmol/L BUN 19 (9-20) mg/dL Creatinine 1.9 H (0.8-1.5) mg/dL Glucose 277 H (75-100) mg/dL Calcium 7.7 L (8.4-10.2) mg/dL - Imaging and Cardiology EKG: image reviewed (personally reviewed shows sinus tachycardia with a rate of 122) - EKG Sinus rhythms and dysrhythmias: sinus rhythm
[2016-03-19] MEDS: XANAX PO PRN (23:22)
[2016-03-20] MEDS: TESSALON PERLES PO SCH ×2 (06:01→13:52)
[2016-03-20] MEDS: NOVOLOG SUB-Q SCH ×2 (08:04→13:27)
[2016-03-20] MEDS ORDERED: LEXISCAN IV ONE ×2 (08:52→08:58)
[2016-03-20] MEDS ORDERED: LASIX PO ONE ×2 (09:00→15:00)
--- NOTE | 2016-03-20 11:07 | Discharge Summary ---
Providers - Providers Date of Admission: 03/17/16 12:27 Date of discharge: 03/20/16 Attending physician: JOANN DIAZ MD Primary care physician: RALPH DOWD Hospitalization Reason for admission: cough which shortness of breath Condition: Stable Hospital course: 61 w pmh of htn, dm, cva, cad sp stent who presents with one day of dry cough, fever, malaise. Denies sick contacts, feels very poorly, feels very weak. Denies sick contacts, also complaining of bipedal edema x 1 week, denies hx of CHF. Did not take flu shot this year. Patient is poor historian and unable to give any information about his health. Discharge diagnosis. * Acute on chronic diastolic CHF * Patient was treated with IV Lasix with improvement of his symptoms. Initial cardiology felt that this was systolic but on review of echocardiogram and it appears he has a preserved systolic function and has decreased diastolic function. States that he has a hx of CHF but dose not what type, was recently at [facility], will request records. * We held his Lasix at this time due to his renal function. Although he had Lasix in the hospital I would like him to follow up outpatient for reinitiation of this. * Acute Kidney Injury possible due to Vasomotor Nephropathy * Baseline creatinine 1.5-1.7 ?cardiorenal syndrome versus diabetic nephropathy per copper etcher * Recommend the patient continue for an open nephrology. Avoid nephrotoxic meds * Per Principal Data Architect "will check urine lytes, Cr, urine protein/cr ratio for quantification of proteinuria. UA shows >500 glucosuria and >300mg proteinuria. Suspect underlying diabetic nephropathy. supportive care for UCHE avoid nephrotoxins, NSAIDs, IV contrast" * Abdominal pain * Patient reports this is chronic for some time about two month to be exact and also restricts movement trying to get up while lying supine due to pain in the epigastric to substernal chest area. CT of the chest was unrevealing ultrasound was also unrevealing. LFTs and lipase are within normal range. * Sepsis r/o Pneumonia vs acute bronchitis * No new fever today. MAXIMUM TEMPERATURE noted yesterday in the morning was 101. * Continue Levaquin, as patient has allergy to PCN. check lactic acid. Bcx reviewed, no growth * D/C tamiflu * Cough * non productive. * Causing chest pain- musculoskeltal * Musculoskeletal chest pain * Patient reports that this has been chronic sometimes restricting his ability to get up while lying supine. * related to the cough, allergy input noted * Hypertensive Urgency * continue BB, Hydralazine, NO ACEI/ARB due to renal function * Anticipate improvement with addition of lasix, otherwise may add other agents * Sinus tachycardia * Likely secondary to cough on underline and infectious process. * Metabolic Acidosis * likely due to renal function abnormality * Hypokalemia likely due to renal dysfunction * replace * DM * Elevation of blood sugar today and will adjust insulin regimen. * Nicotine abuse * Counselling provided on quit methods and risk of continued use, patient verablized understanding * Bilateral pedal edema * Improved * CAD * continue asa, home meds * BPH * Patient state he has some prostrate problems in the past, and has been on abx but again unsure of his hx. * Proteinuria * We'll consider HUGH-I OR ARB arm once GFR stable Disposition: DISCHARGED TO HOME OR SELFCARE Time spent for discharge: 35 mins Core Measure Documentation - Palliative Care Palliative Care/ Comfort Measures: Not Applicable - Core Measures Any of the following diagnoses?: heart failure, none - VTE Discharge Requirements Deep Vein Thrombosis/Pulmonary Embolism Present on Admission: No - Heart Failure Discharge Requirements HUGH/ARB for LVSD if EF <40%: Yes Beta salbador at discharge: Yes Exam - Physical Exam Narrative exam: VITAL SIGNS: Reviewed. GENERAL: The patient appeared well nourished and normally developed. Vital signs as documented. HEAD: No signs of head trauma. EYES: Pupils are equal. Extraocular motions intact. EARS: Hearing grossly intact. MOUTH: Oropharynx is normal. NECK: No adenopathy, no JVD. CHEST: Chest with crackles breath sounds bilaterally. No wheezes. CARDIAC: Regular rate and rhythm. S1 and S2, without murmurs, gallops, or rubs. VASCULAR: No Edema. Peripheral pulses normal and equal in all extremities. ABDOMEN: Soft, tender in the epigastric area. No sign of distention. No rebound or guarding, and no masses palpated. Bowel Sounds normal. MUSCULOSKELETAL: Right upper extremity cyst, Good range of motion of all major joints. Extremities without clubbing, cyanosis or edema. NEUROLOGIC EXAM: Alert and oriented x 3. No focal sensory or strength deficits. Speech normal. Follows commands. PSYCHIATRIC: Mood normal. SKIN: Warm to touch, No rash or lesions. - Constitutional Vitals: Temp Pulse Resp BP Pulse Ox 98 F 82 16 143/76 98 03/20/16 07:30 03/20/16 07:30 03/20/16 07:30 03/20/16 07:30 03/20/16 07:30 Plan Activity: advance as tolerated Diet: low salt, diabetic Special Instructions: record daily weights, record daily BP diary, record blood sugar diary Follow up with: RALPH DOWD MD [Primary Care Provider] - 3-5 Days JYOTSNA ANTHONY MD [Staff Physician] - 7 Days DEMARIO MURPHY MD [Staff Physician] - 7 Days Prescriptions: AtorvaSTATin [Lipitor] 40 mg PO QHS #30 tablet Lisinopril [Zestril TAB] 10 mg PO QDAY #30 tablet
--- NOTE | 2016-03-20 11:36 | Progress Note ---
Assessment and Plan 1. Acute diastolic heart failure - resolved 2. Chronic kidney disease stage III 3. Type 2 diabetes mellitus 4. Essential hypertension 5. Coronary artery disease status post PCI with stent placement to the LAD, RCA and Cx Cath 2010 - widely patent LAD and RCA stents, PCI to CX ISR MPI today - No ischemia, LVEF 50% Recommendations: No further cardiac work-up is needed May go home on asa, plavix, lipitor 40 mg po qhs Follow-up with primary parts and service manager as outpatient Subjective Date of service: 03/20/16 Principal diagnosis: CHF Interval history: Patient is doing well this morning. He denies chest pain or shortness of breath. Objective Vital Signs Temp Pulse Pulse Pulse Resp BP Pulse Ox 03/20/16 07:30 98 F 82 16 143/76 98 03/20/16 00:00 98.7 F 82 20 135/68 98 03/19/16 20:04 90 20 03/19/16 16:20 97.6 F 72 16 139/60 - Physical Examination General: Appears Well, No Apparent Distress HEENT: Positive: PERRL, Mucus Membranes Moist Neck: Positive: neck supple. Negative: JVD/HJR Cardiac: Positive: Reg Rate and Rhythm Lungs: Positive: Normal Exam Neuro: Positive: Grossly Intact Abdomen: Positive: Soft, Active Bowel Sounds. Negative: Tender, Distended Skin: Positive: Clear Extremities: Absent: edema - Imaging and Cardiology EKG: image reviewed (personally reviewed shows sinus tachycardia with a rate of 122) - EKG Sinus rhythms and dysrhythmias: sinus rhythm
--- NOTE | 2016-03-20 11:36 | Progress Note ---
Assessment and Plan - Patient Problems (1) Acute on chronic diastolic (congestive) heart failure Current Visit: Yes Status: Acute Plan to address problem: improved volume status, continue lasix 40mg po qd (2) Acute kidney injury superimposed on CKD Current Visit: Yes Status: Acute Plan to address problem: possible acute cardiorenal syndrome superimposed on CKD; upon chart review at [facility] records, baseline Cr around 1.5-17mg/dl. Renal US shows echogenic kidneys c/ w CKD. Suspect underlying diabetic nephropathy given significant proteinuria with Spot urine protein/cr ratio >5g/g. continue lisinopril 10mg po qd, will titrate up gradually as outpatient. continue supportive care for UCHE avoid nephrotoxins, NSAIDs, IV contrast. Stable for discharge from renal stand point with outpatient CKD f/u (3) Chronic kidney disease, stage III (moderate) Current Visit: Yes Status: Acute Plan to address problem: likely due to underlying diabetic nephropathy/hypertensive nephrosclerosis. renal US showing echogenic kidneys b/l c/w CKD. (4) Hypertensive chronic kidney disease with stage 1 through stage 4 chronic kidney disease, or unspecified chronic kidney disease Current Visit: Yes Status: Acute Plan to address problem: BP remains elevated. continue current BP regimen incl. lasix to 40mg IV daily. Will start low dose lisinopril given significant proteinuria/CHF, since GFR is not far off from pt's baseline. (5) Type 2 diabetes mellitus with diabetic chronic kidney disease Current Visit: Yes Status: Acute Plan to address problem: glucose control as per primary attending (6) Proteinuria Current Visit: Yes Status: Acute Plan to address problem: likely due to diabetic nephropathy. urine protein/cr ratio >5g/g. started lisinopril.. (7) Fever Current Visit: Yes Status: Acute Plan to address problem: cont ABX for possible pneumonia, dose all meds for current GFR Subjective Date of service: 03/20/16 Principal diagnosis: CHF Interval history: Patient ambulating in room in NAD. denies SOB, Cp. Objective - Vital Signs Vital signs: Vital Signs - 12hr 03/20/16 03/20/16 00:00 07:30 Temperature 98.7 F 98 F Pulse Rate [ 82 Brachial] Pulse Rate [ 82 Left Radial] Respiratory 20 16 Rate Blood Pressure 135/68 143/76 [Left Arm] O2 Sat by Pulse 98 98 Oximetry - General Appearance General appearance: well-developed, well-nourished, appears stated age EENT: ATNC, PERRL, mucous membranes moist Neck: no JVD Respiratory: Present: Clear to Ascultation Cardiology: regular, S1S2 Gastrointestinal: normal, normoactive bowel sounds Integumentary: no rash, other (+ edema ) Neurologic: no focal deficit, alert and oriented x3, strength 5/5, CN 3-12 intact Psychiatric: mood/affect appropriate, cooperative - Lab 03/18/16 06:21 03/19/16 06:29 Most recent lab results Calcium 7.7 mg/dL (8.4-10.2) L 03/19/16 06:29 Urine Creatinine 65.8 mg/dL (0.1-20.0) H 03/17/16 18:20 Urine Sodium 77 mEq/L 03/17/16 18:20 Urine Total Protein 327 mg/dL (5-11.8) H 03/17/16 18:20
--- NOTE | 2016-03-20 11:51 | Treadmill Report ---
INDICATION: Shortness of breath. ORDERING PHYSICIAN: Madi Mcnamara MD FINDINGS: There is no scintigraphic evidence of myocardial ischemia. The left ventricle is normal in size and systolic function. The left ventricular ejection fraction is measured at 50%. CONCLUSION: 1. No scintigraphic evidence of myocardial ischemia. 2. Normal left ventricular size and systolic function with the left ventricular ejection fraction measured at 50%. 3. This is a low risk test associated with a less than 1% cardiovascular mortality in the next 1 year. JOB# [id number] DONAVAN/JIMBO
[2016-03-20] MEDS: LOPRESSOR PO SCH (13:51)
[2016-03-20 13:52] VITALS: BP 140/80
[2016-03-20] MEDS: PROTONIX PO SCH (13:52)
[2016-03-20] MEDS: ZESTRIL PO SCH (13:52)
[2016-03-20] MEDS: LOVENOX SUB-Q SCH (13:53)
[2016-03-20] MEDS: HABITROL TD SCH (14:12)
[2016-03-20] MEDS: PLAVIX PO SCH (14:29)
--- NOTE | 2016-03-21 08:32 | Vascular Lab Report ---
LOWER EXTREMITY VENOUS DUPLEX: REASON FOR EXAM: Edema. COMMENTS ON THE RIGHT: All veins visualized are freely compressible without evidence of internal echogenicity. Flow is spontaneous and phasic throughout. COMMENTS ON THE LEFT: All veins visualized are freely compressible without evidence of internal echogenicity. Flow is spontaneous and phasic throughout. IMPRESSION: No evidence of acute or chronic deep venous thrombosis in either lower extremity.
== END 2016-03-20 14:37 | disposition home health service (06) | DRG 871 ==
LOC: ED 05:42 → 3A 08:42 → OBSVTOIN 03-17 12:27 → 3A 03-17 18:53
PROVIDERS: ADMIT Internal Medicine; ATTEND Internal Medicine
DX: A41.9 Sepsis, unspecified organism (principal); N17.0 Acute kidney failure with tubular necrosis; J18.9 Pneumonia, unspecified organism; I50.33 Acute on chronic diastolic (congestive) heart failure; E87.2 Acidosis; I69.951 Hemiplegia and hemiparesis following unspecified cerebrovascular disease affecting right dominant side; I13.0 Hypertensive heart and chronic kidney disease with heart failure and stage 1 through stage 4 chronic kidney disease, or unspecified chronic kidney disease; I25.10 Atherosclerotic heart disease of native coronary artery without angina pectoris; I16.0 Hypertensive urgency; E87.6 Hypokalemia; N40.0 Benign prostatic hyperplasia without lower urinary tract symptoms; F41.9 Anxiety disorder, unspecified; F17.210 Nicotine dependence, cigarettes, uncomplicated; J45.909 Unspecified asthma, uncomplicated; R07.89 Other chest pain; E11.22 Type 2 diabetes mellitus with diabetic chronic kidney disease; N18.3 Chronic kidney disease, stage 3 (moderate); R10.9 Unspecified abdominal pain; J20.9 Acute bronchitis, unspecified; Z88.0 Allergy status to penicillin; Z95.5 Presence of coronary angioplasty implant and graft; I25.2 Old myocardial infarction; Z79.4 Long term (current) use of insulin; Z79.899 Other long term (current) drug therapy; Z79.84 Long term (current) use of oral hypoglycemic drugs
CPT/HCPCS: 36415; 71010; 74176; 76700; 76770; 78452; 80048; 80074; 80301; 81001; 82140; 82550; 82553; 82570; 82962; 83690; 83880; 83935; 84156; 84300; 84484; 85025; 85027; 87040; 87400; 93005; 93010; 93017; 93306; 93970; 94640; 94644; 94760; 96365; 96375; A9502; G0378; G0479; J0360; J0696; J1650; J1815; J1940; J1956; J2270; J2785; J7030

== ENCOUNTER 2020-10-19 10:00 | Outpatient (CLI) | payer MEDICARE ==
[2020-10-19 12:11] LABS: Alanine Aminotransferase 11 units/L (7-56); Albumin 4.5 g/dL (3.9-5); Blood Urea Nitrogen 43 mg/dL (9-20); Calcium 9.1 mg/dL (8.4-10.2); Chol/HDL Ratio 6.48 %; HDL Cholesterol 29 mg/dL (40-59); Hemolysis Index 3; LDL Cholesterol,Direct TNR mg/dL (50-130)
[2020-10-19 12:14] LABS: BUN/Creatinine Ratio 8
--- NOTE | 2020-10-19 12:53 | XRay Report ---
CHEST 2 VIEWS INDICATION: SHORTNESS OF BREATH. COMPARISON: 03/16/2016 FINDINGS: SUPPORT DEVICES: None. HEART: Interval and CABG change. Normal heart size. LUNGS/PLEURA: Minimal streaky left basilar atelectasis with otherwise clear lungs. No pneumothorax. ADDITIONAL FINDINGS: None. IMPRESSION: 1. Minimal streaky left basilar atelectasis with otherwise clear lungs. Signer Name: Anil Bueno MD Signed: 10/19/2020 12:48 PM Workstation Name: [id number]
== END 2020-10-19 10:01 | disposition home or self-care (01) ==
LOC: XRAY 10:00
PROVIDERS: ATTEND Internal Medicine Nephrology
DX: J98.11 Atelectasis (principal); E78.5 Hyperlipidemia, unspecified; I10 Essential (primary) hypertension
CPT/HCPCS: 36415; 71046; 80053; 80061